=== PATIENT | female | born 1970 | race Caucasian/White ===

== ENCOUNTER 2019-04-14 12:04 | Outpatient (CLI) | payer BC, SELFPAY ==
[2019-04-14 12:29] LABS: Hematocrit 34.1 % (35.0-49.0); Hemoglobin 9.6 g/dL (12.0-15.0); Mean Corpuscular HGB Conc 28.2 g/dL (32.0-36.0); Mean Corpuscular Hemoglobin 18.6 pg (27.0-31.0); Mean Corpuscular Volume 66.2 fL (78.0-102.0); Mean Platelet Volume 8.5 fl (9.2-11.8); Platelet Count Result 358 K/mm3 (150-420); Red Blood Count 5.15 M/mm3 (4.20-5.40); Red Cell Distribution Width 18.6 % (11.6-14.4); White Blood Count 8.1 K/mm3 (4.8-10.8)
[2019-04-14 13:37] LABS: Alanine Aminotransferase 14 U/L (14-59); Albumin Level 3.2 g/dL (3.4-5.0); Alkaline Phosphatase 130 U/L (46-116); Anion Gap 15.1 mmol/L (7-16); Aspartate Amino Transferase 11 U/L (15-37); Bilirubin Direct 0.1 mg/dL (0-0.2); Bilirubin,Total 0.2 mg/dL (0.00-1.00); Blood Urea Nitrogen 13 mg/dL (7-18); Calcium 8.5 mg/dL (8.5-10.1); Carbon Dioxide 23 mmol/L (21-32); Chloride 107 mmol/L (98-108); Cholesterol 188 mg/dL (0-200); Estimated Glomerular Filt Rate 58; Ferritin 4 ng/mL (8-252); Folic Acid 16.5 ng/mL (8.6->20); Glucose 99 mg/dL (70-99); HDL Direct 58 mg/dL (40-60); Iron 21 ug/dL (50-170); LDL Cholesterol Calculated 112 mg/dL (<130); Osmolality Calculated 292 mOsm/kg (285-295); Percent Iron Saturation 4 % (12-57); Phosphorus 3.5 mg/dL (2.6-4.7); Potassium 4.1 mmol/L (3.5-5.1); Sodium 141 mmol/L (136-145); Total Protein 7.3 g/dL (6.4-8.2); Triglycerides 92 mg/dL (0-150); Vitamin B12 319 pg/mL (193-986)
[2019-04-14 13:38] LABS: Thyroid Stimulating Hormone Reflex 3.62 u/IU/mL (0.36-3.74)
== END 2019-04-14 12:05 | disposition home or self-care (01) ==
LOC: CHSLAB 12:09
PROVIDERS: PCP Emergency Medicine; Visit Provider Emergency Medicine
DX: Z00.01 Encounter for general adult medical examination with abnormal findings (principal); K21.9 Gastro-esophageal reflux disease without esophagitis; I10 Essential (primary) hypertension; R51 Headache; R53.83 Other fatigue; R63.5 Abnormal weight gain
CPT/HCPCS: 36415; 80061; 80069; 80076; 82607; 82728; 82746; 83540; 83550; 84443; 85027

== ENCOUNTER → 2019-05-19 12:38 | Outpatient (CLI) | payer BC, SELFPAY ==
--- NOTE | ~2019-05-19 | MM_ITS ---
EXAMINATION: MM screening [facility] BI w luda HISTORY: Screening mammogram TECHNIQUE: Craniocaudal and mediolateral oblique 3-D tomosynthesis images were obtained and synthetic 2-D images were generated. CAD analysis was submitted and interpreted. COMPARISON: 08/07/2017, 09/06/2013 bilateral digital screening mammogram examinations BREAST PARENCHYMAL COMPOSITION: There are scattered areas of fibroglandular density. FINDINGS: Stable benign intramammary lymph node right breast. There is a focal asymmetry slightly medial to the mid sagittal plane on craniocaudal caudal view at m id depth of the right breast. Diagnostic left mammogram is recommended, with ultrasound if required. Otherwise there is no evidence of suspicious mass, calcification, or architectural distortion to sugg est malignancy in either breast. There has been no other suspicious interval change. IMPRESSION: 1. Focal asymmetry of left breast on craniocaudal view 2. Diagnostic left mammogram is recommended, with ultrasound if required. BI-RADS Category 0: Incomplete: Needs additional imaging evaluation. Reviewed, dictated and finalized at location A.
== END ==
PROVIDERS: Visit Provider Emergency Medicine
DX: Z12.31 Encounter for screening mammogram for malignant neoplasm of breast (principal); R92.8 Other abnormal and inconclusive findings on diagnostic imaging of breast
CPT/HCPCS: 77063; 77067

== ENCOUNTER → 2019-09-21 14:37 | Outpatient (CLI) | payer BC, SELFPAY ==
--- NOTE | ~2019-09-21 | MM_ITS ---
EXAMINATION: MM diagnostic mammo unilat LT HISTORY: 05/19/2019 bilateral digital screening mammogram TECHNIQUE: Additional 3-D tomosynthesis images of the left breast were performed and synthetic 2-D im ages were generated. Rolled medial craniocaudal and rolled lateral craniocaudal views. CAD analysis w as submitted and interpreted. COMPARISON: 05/19/2019 bilateral digital screening mammogram 08/07/2017, 09/06/2013ilateral digital screening mammogram examinations BREAST PARENCHYMAL COMPOSITION: There are scattered areas of fibroglandular density. FINDINGS: No suspicious mass or architectural distortion, malignant calcification, skin thickening or retraction or significant new or developing density is detected. IMPRESSION: 1. No mammographic evidence of malignancy 2. Routine mammographic screening is recommended. BI-RADS Category 1: Negative Reviewed, dictated and finalized at location A.
== END ==
PROVIDERS: PCP Emergency Medicine; Visit Provider Emergency Medicine
DX: R92.2 Inconclusive mammogram (principal)
CPT/HCPCS: 77065

== ENCOUNTER → 2019-12-22 14:29 | Outpatient (CLI) | payer BC, SELFPAY ==
--- NOTE | ~2019-12-22 | MR_ITS ---
EXAMINATION: MR knee LT wo con DATE: 12/22/2019 15:02 INDICATION: Medial collateral ligament sprain at the left knee with 2 months of anterior left knee pa in. TECHNIQUE: Magnetic resonance imaging (MRI) of the left knee was performed without intravenous contra st. Sequences included coronal PD-weighted FSE, coronal PD-weighted FS FSE, sagittal T2-weighted FSE , sagittal PD-weighted FS FSE and axial PD weighted fat saturated FSE. COMPARISON: None. FINDINGS: Medial compartment: Medial meniscus is normal. Partial-thickness cartilage loss with deep fissuring and mild underlying s ubarticular edema along the anterior weightbearing medial femoral condyle and along the anterior aspe ct of the medial tibial plateau. Lateral compartment: Lateral meniscus is normal. Articular cartilage is normal. Patellofemoral compartment: Partial-thickness chondral ulceration at the medial facet and apical ridge without degenerative subch ondral changes. Deep chondral ulceration with cortical irregularity and mild reticular edema at the c audal half of the medial trochlea. Ligaments and tendons: Anterior and posterior cruciate ligaments are normal. The medial collateral ligament and fibular marlo ateral ligament complex are normal. The extensor mechanism is normal. The visualized medial and later al hamstring tendons as well as the iliotibial band are normal. Fluid: Likely reactive small left knee joint effusion. No loose osteochondral bodies identified. Osseous/other: Bone alignment is normal. No fracture or pathologic marrow replacing process. Prepatellar edema witho ut discrete bursal fluid collection. IMPRESSION: 1. Mild to moderate osteoarthritis medial compartment and mild patellofemoral osteoarthritis, both wi th regions of moderate and high-grade chondromalacia as detailed above. Reviewed, dictated and finalized at location B. IMPRESSION: 1. Mild to moderate osteoarthritis medial compartment and mild patellofemoral o steoarthritis, both with regions of moderate and high-grade chondromalacia as d etailed above.
== END ==
PROVIDERS: Visit Provider Orthopaedic Surgery
DX: S83.412A Sprain of medial collateral ligament of left knee, initial encounter (principal); M25.562 Pain in left knee; M17.12 Unilateral primary osteoarthritis, left knee; M94.262 Chondromalacia, left knee
CPT/HCPCS: 73721

== ENCOUNTER → 2020-04-06 13:25 | Outpatient (CLI) | payer BC, SELFPAY ==
--- NOTE | ~2020-04-06 | US_ITS ---
EXAMINATION: US pelvic complete w TV DATE: 04/06/2020 13:59 INDICATION: Right pelvic fullness. Heavy periods. Comparison:No prior studies for comparison. TECHNIQUE: Multiple transabdominal and endovaginal sonographic images of the pelvis performed. FINDINGS: The uterus measures 10.1 x 4.1 x 5.8. The endometrial complex measures 1.2 cm. The right ovary measures 2.2 x 1.8 x 2.3 cm and the left ovary measures 2.3 x 2.3 x 1.6 cm. There ar e small follicles in each ovary.Normal doppler signal in both ovaries. There is no free fluid in the pelvis. There are no abnormal masses seen on either side. IMPRESSION: 1. Enlarged uterus with mild endometrial thickening measuring 12 mm. 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
== END ==
PROVIDERS: PCP Emergency Medicine; Visit Provider Nurse Practitioner
DX: R10.2 Pelvic and perineal pain (principal); R93.89 Abnormal findings on diagnostic imaging of other specified body structures
CPT/HCPCS: 76830; 76856

== ENCOUNTER → 2020-04-21 00:39 | Outpatient (CLI) | payer BC, SELFPAY ==
[2020-04-21 17:47] LABS: SARS-CoV-2 RNA PCR Negative
== END ==
PROVIDERS: PCP Emergency Medicine; Visit Provider Obstetrics & Gynecology Gynecology
DX: Z01.812 Encounter for preprocedural laboratory examination (principal); Z20.822 Contact with and (suspected) exposure to COVID-19
CPT/HCPCS: C9803; U0003; U0005

== ENCOUNTER 2020-04-24 00:47 | Day surgery (SDC) | payer BC, SELFPAY ==
[2020-04-17 14:09] VITALS: BMI 37.1
--- NOTE | 2020-04-24 08:14 | WPDHPUPDATE1 ---
History and Physical Update Update Date/Time: 04/24/20 08:14 History and Physical has been reviewed, including an updated exam of the patient. There are NO changes in the patient's condition. Risks, benefits, and alternatives have been discussed and questions answered. Patient agrees to proceed with procedure.
--- NOTE | 2020-04-24 08:15 | PM.HPGS ---
History of Present Illness History of Present Illness Consent: Risks, benefits, and alternatives have been discussed and questions answered. Patient agrees to proceed with procedure. Chief complaint: Menorrhagia Narrative: Brigette Juan is a 49 year old female with heavy cycles. Cycles are lasting for a total of 7 days with 1 day of very heavy bleeding up to 1 pad per hour she was diagnosed with anemia and her primary care provider gave the patient iron infusions. Pelvic ultrasound was normal except for a slightly enlarged uterus at 10cm. It was recommended to proceed with further workup including hysteroscopy with D& C. Risks of infection, bleeding, and uterine perforation were reviewed. The patient states understanding and agrees to proceed. Review of Systems Review of Systems: Narrative: not repeated day of surgery; patient states no changes in status PMFSH Past Medical History Medical History (Updated 04/24/20 @ 08:22 by Leila Cooley MD) Anxiety Borderline personality disorder Depression MCL sprain of left knee Obesity Osteoarthritis of both knees Spontaneous Surgical History Surgical History H/O wisdom tooth extraction (~1988) History of arthroscopy of right knee (~1993) To Clean Out Scar Tissue History of eye surgery (~1975) To Correct Exotropia Rt Eye History of eye surgery (~1979) To Correct Exotropia Lt Eye Family History Family History Father Hypertension Family history of alcoholism Family history of diabetes mellitus in first degree relative Father Family history of diabetes mellitus in first degree relative Other Carcinoma of colon Social History Social History Smoking status: Never smoker Alcohol intake: never Living arrangements: with family Spiritual care concerns: No Meds Home Medications and Allergies Home Medications Medication Instructions Recorded Confirmed Type acetaminophen 325 mg tablet 325 mg PO Q6H PRN 12/15/19 04/17/20 History ibuprofen 200 mg tablet 200 mg PO Q6H PRN 12/15/19 04/17/20 History trazodone 200 mg PO HS 04/17/20 04/17/20 History Allergies Allergy/AdvReac Type Severity Reaction Status Date / Time No Known Allergies Allergy Verified 04/17/20 14:14 Exam Const: General: no acute distress GI: Inspection: normal to inspection GI Palp: Yes Soft to palpation and Yes Tenderness to palpation present (GI) (lower abdomen) : External Female Exam: normal external appearance Speculum Exam - Vagina: normal appearance of the vagina Speculum Exam - Cervix: Other cervical findings present (cervix friable) Bimanual exam- vagina & uterus: No Cervical tenderness present and nontender Bimanual Exam- Adnexa, other: tender (R>L) and other (R sided fullness) Assessment and Plan Assessment and plan (1) Menorrhagia: Code(s): N92.0 - Excessive and frequent menstruation with regular cycle Status: Acute Assessment and Plan: plan to proceed with hysteroscopy and D&C
[2020-04-24 09:35] VITALS: BP 141/106; PULSE 88; RESP 18; TEMP 36.5; O2SAT 98
[2020-04-24] MEDS: ACETAMINOPHEN 500 MG TABLET 1000 MG PO (09:59)
[2020-04-24] MEDS: LACTATED RINGERS 1,000 ML 30 ML IV CONT (10:13)
--- NOTE | 2020-04-24 10:37 | WPDANESEPPF ---
Anes - Initial Pre Proc Eval Procedure: Operation Date: 04/24/20 11:15 Proposed Procedures p Hysteroscopy Dilation and Curettage - Leila Cooley MD Date/Time: 04/24/20 10:37 Surgeon: Leila Cooley MD Pre Op Diagnosis: Menorrhagia Patient Data Age: 49 Gender: F Height: 5 ft 6 in Weight: 98.1 kg Last Vital Signs Temp 36.5 C 04/24/20 09:35 Pulse 88 04/24/20 09:35 Resp 18 04/24/20 09:35 BP 141/106 H 04/24/20 09:35 Pulse Ox 98 04/24/20 09:35 Allergies Allergy/AdvReac Type Severity Reaction Status Date / Time No Known Allergies Allergy Verified 04/24/20 09:32 Home Medications Medication Instructions Recorded Confirmed Type acetaminophen 325 mg tablet 325 mg PO Q6H PRN 12/15/19 04/24/20 History ibuprofen 200 mg tablet 200 mg PO Q6H PRN 12/15/19 04/24/20 History trazodone 200 mg PO HS 04/17/20 04/24/20 History Patient hx anesthesia problems: none Family hx anesthesia problems: none PMFSH Past Medical History Medical History Anxiety Borderline personality disorder Depression MCL sprain of left knee Obesity Osteoarthritis of both knees Spontaneous Surgical History Surgical History H/O wisdom tooth extraction (~1988) History of arthroscopy of right knee (~1993) To Clean Out Scar Tissue History of eye surgery (~1975) To Correct Exotropia Rt Eye History of eye surgery (~1979) To Correct Exotropia Lt Eye Family History Family History Father Hypertension Family history of alcoholism Family history of diabetes mellitus in first degree relative Father Family history of diabetes mellitus in first degree relative Other Carcinoma of colon Social History Social History Smoking status: Never smoker Alcohol intake: never Living arrangements: with family Spiritual care concerns: No Anes - Eval Final PreProcedure Day of Procedure 04/24/20 10:37 Patient weight: obese Heart: regular rate and rhythm Lungs: clear to auscultation Airway: Mallampati scale class II Neurological: alert and oriented Last oral intake: >/= 8 hours ASA classification: III Emergent: no Anesthetic plan: proceed Anesthesia type and monitoring: general GIVS and standard monitoring Informed Consent: The patient's anesthetic plan and its attendant risks and benefits were discussed with the patient/family/POA. Questions were solicited and answers provided to the satisfaction of the patient/family/POA.
--- NOTE | 2020-04-24 11:29 | PM.PROC ---
Procedure Note - Detailed Date of procedure: 04/24/20 Pre-op diagnosis: Menorrhagia Post-op diagnosis: same Procedure performed: D&C hysteroscopy Description of procedure: The patient is taken to the operating room placed in the dorsal lithotomy position under anesthesia. She was prepped and draped in usual sterile fashion. The bivalve speculum was placed in the vagina and the cervix is grasped on the anterior lip with a tenaculum. The cervix is noted to have a very stenotic external and internal os. The os Finders are used. The cervix is then able to be dilated. The uterus sounds to 10cm. The diagnostic hysteroscope was placed with no abnormalities noted. The hysteroscope was removed and the medium sharp curette is used to curette the endometrium until a good uterine cry was noted in all areas. All instruments are removed. Sponge, instrument, and needle counts are correct per the OR staff. Anesthesia: MAC and local Surgeon: Leila Cooley MD Estimated blood loss (mL): 5 Drains: No Packing: No Pathology: yes (endometrial curettings) Complications: No immediate complications Condition: stable Disposition: PACU Findings: cervix stenotic; uterus 10 cm; grossly normal appearing
[2020-04-24 11:40] VITALS: BP 143/94; PULSE 97; RESP 12; O2SAT 95
[2020-04-24] MEDS: fentaNYL CITRATE INJ (*CRX) 100 MCG/2 ML VIAL 25 MCG IV PUSH (11:40)
[2020-04-24 12:15] VITALS: BP 165/99; PULSE 74; RESP 14
== END 2020-04-24 12:36 | disposition home or self-care (01) ==
PROVIDERS: PCP Emergency Medicine; Visit Provider Obstetrics & Gynecology Gynecology
PROC: 0U5B8ZZ Destruction of Endometrium, Via Natural or Artificial Opening Endoscopic (ICD-10-PCS; CPT 58563; principal; 2020-04-24 11:15)
DX: N92.0 Excessive and frequent menstruation with regular cycle (principal); D64.9 Anemia, unspecified; F41.8 Other specified anxiety disorders; F60.3 Borderline personality disorder; E66.9 Obesity, unspecified; Z68.34 Body mass index [BMI] 34.0-34.9, adult
CPT/HCPCS: 58558; 88305; 88342; A9270; C9803; J2250; J2704; J3010; J7120; U0003; U0005

== ENCOUNTER 2020-07-11 08:37 | Outpatient (CLI) | payer BC, SELFPAY ==
--- NOTE | 2020-07-11 | ECHO_ITS ---
Patient Info Name: Brigette Juan Age: 49 years : 1970 Gender: Female Ht: 66 in Wt: 230 lbs BSA: 2.25 m2 HR: 84 bpm BP: 167 / 113 mmHg Heart Rhythm: Sinus Rhythm Technical Quality: Good Exam Date: 07/11/2020 8:52 AM Exam Location: [facility] Patient Status: Outpatient Admit Date: 07/11/2020 Staff Ordering Physician: Jim Villanueva MD Pitching Coach: Aster Rincon RDCS Attending Provider: Jim Villanueva MD Referring Physician: Rich BARBOSA; Exam Type: CA echo doppler color flow Study Info Indications R00.2 - Palpitations Complete two-dimensional, color flow and Doppler transthoracic echocardiogram is performed. Summary 1. Complete two-dimensional, color flow and Doppler transthoracic echocardiogram is performed. 2. Left ventricular systolic function is normal, estimated at 65-70%. 3. There is no increased left ventricular wall thickness. 4. The left ventricular diastolic function is normal. 5. There is mild mitral valve regurgitation. 6. There is trace aortic valve regurgitation. Left Ventricle Left ventricular chamber dimension is normal. Left ventricular systolic function is normal, estimated at 65-70%. There is no increased left ventricular wall thickness. The left ventricular diastolic function is normal. Global longitudinal strain is mildly elevated at -17 %. Right Ventricle Right ventricular chamber dimension is normal. Right ventricular systolic function is normal. Left Atria Left atrial chamber dimension is normal. Right Atria Right atrial chamber dimension is normal. Aortic Valve The aortic valve is not well visualized. There is no aortic valve stenosis. There is trace aortic valve regurgitation. Pulmonic Valve The pulmonic valve is not well visualized. Mitral Valve The mitral valve has normal leaflets. There is mild mitral valve regurgitation. Tricuspid Valve The tricuspid valve leaflets are normal. There is trace tricuspid valve regurgitation. No pulmonary hypertension, estimated pulmonary arterial systolic pressure is 25 mmHg. Pericardium/Pleural The pericardium appears normal. There is no pericardial effusion. Inferior Vena Cava Normal inferior vena cava with >50% collapse upon inspiration consistent with normal right atrial pressure, 5 mmHg. Aorta The aortic root size at the sinus of Valsalva is normal. Left Ventricular Outflow Tract Name Value Normal LVOT 2D LVOT Diameter 1.9 cm LVOT Doppler LVOT Peak Gradient 5 mmHg LVOT Mean Gradient 3 mmHg LVOT VTI 22 cm LVOT VTI/AV VTI Ratio 1.1 LVOT Stroke Volume 60 ml LVOT CO 5.1 l/min LVOT CI 2.3 l/min/m2 Pulmonic Valve Name Value Normal RVOT Doppler
== END 2020-07-11 08:38 | disposition home or self-care (01) ==
LOC: ANHCARD 08:41
PROVIDERS: PCP Emergency Medicine; Visit Provider Emergency Medicine
DX: R00.2 Palpitations (principal); R00.0 Tachycardia, unspecified; I34.0 Nonrheumatic mitral (valve) insufficiency
CPT/HCPCS: 93306

== ENCOUNTER → 2021-12-21 10:37 | Outpatient (CLI) | payer BC, SELFPAY ==
--- NOTE | ~2021-12-21 | MM_ITS ---
EXAMINATION: MM screening [facility] BI w luda HISTORY: Screening mammogram TECHNIQUE: Craniocaudal and mediolateral oblique 3-D tomosynthesis images were obtained and synthetic 2-D images were generated. CAD analysis was submitted and interpreted. COMPARISON: 09/21/2019, 05/19/2019, 08/07/2017 BREAST PARENCHYMAL COMPOSITION: There are scattered areas of fibroglandular density. FINDINGS: No suspicious mass, calcification, or architectural distortion are identified in either suzie ast to suggest malignancy. There has been no suspicious interval change. IMPRESSION: 1. No mammographic evidence of malignancy. 2. Recommend routine screening mammography in one year. BI-RADS Category 1: Negative Reviewed, dictated and finalized at location A.
== END ==
PROVIDERS: PCP Emergency Medicine; Visit Provider Emergency Medicine
DX: Z12.31 Encounter for screening mammogram for malignant neoplasm of breast (principal)
CPT/HCPCS: 77063; 77067

== ENCOUNTER 2022-09-27 15:10 | Outpatient (RCR) | payer BC, SELFPAY ==
--- NOTE | 2022-09-27 16:19 | OPREHPOC ---
Outpatient Therapy Plan of Care This is a Multidisciplinary Plan of Care that may contain components documented by all disciplines (PT, OT, and ST.) PT Problem 1 PT Problem #1 Knowledge Deficit PT Goal 1 Goal Patient to demonstrate independence with HEP Target Visit 6 PT Problem 2 PT Problem #2 Pain PT Goal 1 Goal Patient to report highest pain at 2/10 Target Visit 12 PT Problem 3 PT Problem #3 Impaired Strength PT Goal 1 Goal Patient to demonstrate 5/5 strength of B LE to return to heavy house hold chores at PLOF Target Visit 12 PT Problem 4 PT Problem #4 Impaired Range of Motion PT Goal 1 Goal Patient to demonstrate B knee ROM to 0-125 to return to stair navigation at PLOF Target Visit 12 PT Problem 5 PT Problem #5 Impaired Functional Mobil PT Goal 1 Goal 1. Patient to improve LEFS by 20% 2. Patient to report ability to stand up from chair with no increase in pain 3. Patient to reports ability to care for her dogs with no increase in pain. Target Visit 12
--- NOTE | 2022-09-27 16:19 | PTOPEVAL1 ---
Assessment and note entered by Lakeisha Sampson DPT Evaluation Information Diagnosis B knee pain Onset 10/16/22 Subjective Information Patient reports on 08/29/22 patient was in the yard and tripped and was trying to catch her balance and resulted in falling with resulting pain in both knees. She reports L knee is worse than R. She reports L knee pain is at medial and lateral joint line. She reports R sided pain is down the ITB. Patient reports difficulty with walking, getting up from chair, and stair navigation. Patient reports no difficulty previously. Patient reports she does not work but has 8 dogs she cares for. RTMD for MRI 10/21/22 Reported Pain Level Pain Score 4,6: Self Report Assessment PT Clinical Summary Patient is a 52 year old female who presents to PT with B knee pain. Patient demonstrates decreased B LE strength, decreased L knee flexion and tenderness at the joint line with special testing indicating possible meniscus tear at the L knee. Patient is limited in ambulation, getting up from a chair and completing house hold tasks. Patient would benefit from skilled PT to address impairments and return to PLOF. Plan of Care Interventions Electrical Stimulation,Gait Training,Hot Pack/Cold Pack,Manual Therapy,Neuro Re-education,Patient/ Caregiver Educati,Therapeutic Activities, Therapeutic Exercise PT Services Indicated Yes Treatment Frequency and 2x weekly for 12 viits Duration These treatments will address the objective and functional deficits as defined above. The patient will be advanced safely and appropriately in order for the patient to progress towards his/her prior level of function. Additional exercises will be introduced and as well as a comprehensive home exercise program upon discharge, if needed, ?to ensure carryover of functional gains achieved in the clinic. This treatment plan has been reviewed and agreement upon by the patient.
--- NOTE | 2022-09-27 16:50 | PTOPEVAL1 ---
Assessment and note entered by Lakeisha Sampson DPT Evaluation Information Diagnosis B knee pain Onset 08/29/22 Subjective Information Patient reports on 08/29/22 patient was in the yard and tripped and was trying to catch her balance and resulted in falling with resulting pain in both knees. She reports L knee is worse than R. She reports L knee pain is at medial and lateral joint line. She reports R sided pain is down the ITB. Patient reports difficulty with walking, getting up from chair, and stair navigation. Patient reports no difficulty previously. Patient reports she does not work but has 8 dogs she cares for. RTMD for MRI 10/21/22 Reported Pain Level Pain Score 4,6: Self Report Assessment PT Clinical Summary Patient is a 52 year old female who presents to PT with B knee pain. Patient demonstrates decreased B LE strength, decreased L knee flexion and tenderness at the joint line with special testing indicating possible meniscus tear at the L knee. Patient is limited in ambulation, getting up from a chair and completing house hold tasks. Patient would benefit from skilled PT to address impairments and return to PLOF. Plan of Care Interventions Electrical Stimulation,Gait Training,Hot Pack/Cold Pack,Manual Therapy,Neuro Re-education,Patient/ Caregiver Educati,Therapeutic Activities, Therapeutic Exercise PT Services Indicated Yes Treatment Frequency and 2x weekly for 12 visits Duration These treatments will address the objective and functional deficits as defined above. The patient will be advanced safely and appropriately in order for the patient to progress towards his/her prior level of function. Additional exercises will be introduced and as well as a comprehensive home exercise program upon discharge, if needed, ?to ensure carryover of functional gains achieved in the clinic. This treatment plan has been reviewed and agreement upon by the patient.
== END 2022-10-17 13:22 | disposition home or self-care (01) ==
LOC: CHSPT 15:10
PROVIDERS: Visit Provider Physician Assistant
DX: M25.561 Pain in right knee (principal); M25.562 Pain in left knee; S83.242D Other tear of medial meniscus, current injury, left knee, subsequent encounter; S86.911D Strain of unspecified muscle(s) and tendon(s) at lower leg level, right leg, subsequent encounter
CPT/HCPCS: 97014; 97110; 97140; 97161; G0283

== ENCOUNTER 2023-08-22 09:32 | Outpatient (CLI) | payer BC, SELFPAY ==
[2023-08-22 10:12] LABS: Basophils Absolute Auto 0.02 K/mm3 (0.00-0.10); Basophils Percent Auto 0.3 % (0.0-1.0); Eosinophils Absolute Auto 0.14 K/mm3 (0.02-0.50); Hematocrit 40.8 % (35.0-49.0); Hemoglobin 13.9 g/dL (12.0-15.0); Immature Granulocyte Absolute 0.02 K/mm3 (0.00-0.00); Immature Granulocyte Percent A 0.3 % (0.0-0.0); Lymphocytes Absolute Auto 2.05 K/mm3 (1.10-4.50); Lymphocytes Percent Auto 28.6 % (18.0-42.0); Mean Corpuscular HGB Conc 34.1 g/dL (32-36); Mean Corpuscular Hemoglobin 29.9 pg (27.0-31.0); Mean Corpuscular Volume 87.7 fL (78.0-102.0); Mean Platelet Volume 9.7 fl (9.2-11.8); Monocytes Absolute Auto 0.64 K/mm3 (0.10-0.90); Monocytes Percent Auto 8.9 % (2.0-11.0); Neutrophils Absolute Auto 4.29 K/mm3 (1.70-7.20); Neutrophils Percent Auto 59.9 % (50.0-70.0); Platelet Count Result 220 K/mm3 (150-420); Red Blood Count 4.65 M/mm3 (4.20-5.40); Red Cell Distribution Width 13.5 % (11.6-14.4); White Blood Count 7.2 K/mm3 (4.8-10.8)
[2023-08-22 10:17] LABS: Appearance Urine Clear (Clear); Bilirubin Urine Negative (Negative); Blood Urine Negative (Negative); Color Urine Yellow (Yellow); Glucose Urine UA Negative (Negative); Ketones Urine Negative (Negative); Leukocyte Esterase Ur Trace LEU/UL (Negative); Nitrate Urine Negative (Negative); Protein Urine Negative (Negative); Urobilinogen Urine 0.2 mg/dL (0.2-1.0); pH Urine 7.5 (5.0-8.0)
[2023-08-22 10:28] LABS: Add Urine Microscopic? YES; Bacteria Urine Trace /hpf; RBC Urine None seen /hpf (0-2); Squamous Epithelial Cell Urine Moderate /hpf (Few); WBC Urine 0-5 /hpf (0-3)
[2023-08-22 11:10] LABS: Alanine Aminotransferase 25 U/L (14-59); Albumin Level 3.4 g/dL (3.4-5.0); Alkaline Phosphatase 147 U/L (46-116); Anion Gap 7 mmol/L (4-12); Aspartate Amino Transferase 12 U/L (15-37); Bilirubin Direct 0.1 mg/dL (0-0.2); Bilirubin,Total 0.3 mg/dL (0.00-1.00); Blood Urea Nitrogen 10 mg/dL (7-18); Carbon Dioxide 30 mmol/L (21-32); Chloride 102 mmol/L (98-108); Cholesterol 218 mg/dL (0-200); Estimated Glomerular Filt Rate > 60; Folic Acid 18.7 ng/mL (8.6->20); Glucose 101 mg/dL (70-99); HDL Direct 48 mg/dL (40-60); LDL Cholesterol Calculated 143 mg/dL (<130); Osmolality Calculated 287 mOsm/kg (285-295); Phosphorus 3.2 mg/dL (2.6-4.7); Potassium 4.4 mmol/L (3.5-5.1); Sodium 139 mmol/L (136-145); Total Protein 7.2 g/dL (6.4-8.2); Triglycerides 137 mg/dL (0-150); Vitamin B12 679 pg/mL (193-986)
[2023-08-22 11:32] LABS: Free T4 Free Thyroxine Reflex 0.69 ng/dL (0.76-1.46)
== END 2023-08-22 09:33 | disposition home or self-care (01) ==
LOC: CHSLAB 09:34
PROVIDERS: PCP Emergency Medicine; Visit Provider Emergency Medicine
DX: E03.9 Hypothyroidism, unspecified (principal); F41.1 Generalized anxiety disorder; F51.01 Primary insomnia; H93.13 Tinnitus, bilateral; I10 Essential (primary) hypertension; R63.5 Abnormal weight gain
CPT/HCPCS: 36415; 80061; 80069; 80076; 81001; 82607; 82746; 84439; 84443; 85025

== ENCOUNTER 2023-08-25 07:05 | Day surgery (SDC) | payer BC, SELFPAY ==
[2023-08-25] VITALS (17 sets, daily range): BP systolic 122–178; BP diastolic 82–127; PULSE 65–114; RESP 11–31; TEMP 36.1–36.8; O2SAT 96–100
--- NOTE | ~2023-08-25 | XR_ITS ---
EXAMINATION: XR surgery orthopedic DATE: 08/25/2023 11:16 INDICATION: ORIF left second digit partial amputation. TECHNIQUE: 2 fluoroscopic images of the second digit were obtained during procedure performed by Dr. Calloway. Radiologist was not present for the imaging or procedure. The amount of fluoroscopy time used during this procedure was 0.1 minutes. COMPARISON: Left second digit radiographs dated 08/25/2023 FINDINGS: Interval replacement near-anatomic alignment of the amputated portion of the distal phalanx of the le ft second digit which includes the tuft and surrounding soft tissues. The bone is fixed with an axill wilfred directed to the cutaneous pin which extends across the tuft, the more proximal portion of the dis viraj phalanx and into the head of the second middle phalanx. No new fractures identified. IMPRESSION: 1. Near-anatomic alignment post replacement and percutaneous pin fixation of a partial amputation of the distal aspect of the left second distal phalanx. Reviewed, dictated and finalized at location B.
--- NOTE | ~2023-08-25 | XR_ITS ---
XR finger 2nd LT min 2V Ordering provider: Richard Parker MD History: . lac, DOG BITE TIP FINGER OFF THIS MORNING . Comparison: None. FINDINGS: BONES: Amputation of the distal end of the distal phalanx of the second finger. JOINT SPACES: Normal. SOFT TISSUES: Loss of soft tissues in the distal end of the distal phalanx with soft tissue swelling in the area. IMPRESSION: Amputation of the distal end of the distal phalanx of the second finger Reviewed, dictated and finalized at location A.
[2023-08-25] MEDS: AMOXICILLIN/CLAVULANATE K 875-125 MG TAB 1 TABLET PO (07:43)
[2023-08-25] MEDS: HYDROcodone/acetaminophen (*CRX) 5-325 MG TABLET 2 TAB PO (07:43)
--- NOTE | 2023-08-25 07:59 | ED.GENADULT ---
HPI - General Adult General Chief complaint: Extremity Injury, Upper Stated complaint: L 2ND DIGIT PARTIAL AMP Time Seen by Provider: 08/25/23 07:18 History of Present Illness HPI narrative: This is a 53-year-old female presenting ED with a chief complaint finger avulsion. Patient was bit on her left hand by her [place] mastiff. the tip of her finger was removed. She brought the tip with her to the ED. no other injuries. Dog is up-to-date on shots. Related Data Home Medications Medication Instructions Recorded Confirmed acetaminophen 325 mg tablet 325 mg PO Q6H PRN Pain 12/15/19 04/24/20 (Tylenol) ibuprofen 200 mg tablet (Advil) 200 mg PO Q6H PRN Headache 12/15/19 04/24/20 trazodone 100 mg tablet 200 mg PO HS 04/17/20 04/24/20 Allergies Allergy/AdvReac Type Severity Reaction Status Date / Time No Known Allergies Allergy Verified 04/24/20 09:32 [facility] Past Medical History Medical History Anxiety Borderline personality disorder Depression MCL sprain of left knee Obesity Osteoarthritis of both knees Spontaneous Surgical History Surgical History H/O wisdom tooth extraction (~1988) History of arthroscopy of right knee (~1993) To Clean Out Scar Tissue History of eye surgery (~1975) To Correct Exotropia Rt Eye History of eye surgery (~1979) To Correct Exotropia Lt Eye Family History Family History Father Hypertension Family history of alcoholism Family history of diabetes mellitus in first degree relative Father Family history of diabetes mellitus in first degree relative Other Carcinoma of colon Social History Social History Smoking status: Never smoker Alcohol intake: never Living arrangements: with family Spiritual care concerns: No Exam Narrative: APPEARANCE: No apparent distress. Head: atraumatic. EYES: EOMI, NOSE: Atraumatic NECK: Trachea midline RESPIRATORY: No increased rate of breathing CARDIOVASCULAR: RRR, ABDOMINAL: Non-distended MUSCULOSKELETAl: L hand, 2nd digit Zone II distal avulsion injury w/ complete removal of nail. Minor avulsion of 3rd digit w/ nailbed laceration. NEURO: Alert. Moving 4/4 extremities SKIN:: Warm, dry. Normal color PSYCHIATRIC: Normal affect Course Vital Signs Vital signs: Vital Signs Temperature 98.2 F 08/25/23 07:12 Pulse Rate 114 H 08/25/23 07:12 Respiratory Rate 16 08/25/23 07:12 Blood Pressure 178/127 H 08/25/23 07:12 Pulse Oximetry 100 08/25/23 07:12 Oxygen Delivery Room Air 08/25/23 07:12 Temperature 98.2 F 08/25/23 07:12 Pulse Rate 90 08/25/23 08:02 Respiratory Rate 16 08/25/23 08:02 Blood Pressure 158/102 H 08/25/23 08:02 Pulse Oximetry 100 08/25/23 08:02 Oxygen Delivery Room Air 08/25/23 07:12 Medical Decision Making MDM Narrative Medical decision making narrative: -Course:53-year-old female presenting with his own 2 avulsion injury to her finger tips. Patient given Tdap, Augmentin Mineral. A digital block performed for pain control. Dr. Calloway at the was consult and will take the patient to the OR for reimplantation. -DDX includes but is not limited to: Finger avulsion, soft tissue injury, bony injury, -Independent interpretation of studies: X-ray showed partial amputation of the distal phalanx -Discussion of Management/Consultants: Dr. Calloway-plastics -Procedures: digital block performed using bupivacaine 0.25% 5 cc -Interventions: Tdap, Augmentin, Mineral 5 mg x 2 -Shared decision making / Disposition: OR -RX Augmentin Vital Signs Vital Signs: Vital Signs Temperature 98.2 F 08/25/23 07:12 Pulse Rate 114 H 08/25/23 07:12 Respiratory Rate 16 08/25/23 07:12 Blood Pressure 178/127 H 08/25/23 07:12 Pulse Oxime
--- NOTE | 2023-08-25 08:03 | PC.NURSE ---
No vaccine was given, accidental double pull. MAR will not allow me to document as not given.
--- NOTE | 2023-08-25 09:40 | WPDCN ---
Assessment and Plan Assessment and plan (1) Amputation, finger, traumatic: Qualifiers: Encounter type: initial encounter Qualified Code(s): S68.119A - Complete traumatic metacarpophalangeal amputation of unspecified finger, initial encounter Code(s): S68.119A - Complete traumatic metacarpophalangeal amputation of unspecified finger, initial encounter Status: Acute Assessment and Plan: 53yo female with left index finger tip amputation from dog bite reviwed impression and Dx and option of attempted replantation in form of composite tissue graft vs allowing to heal by secondary intention discused procedure of pinning fracture and applying graft, post-op expectations and risks. Reviewed procedure, post-op expectations and risks including but not limited to bleeding, infection, injury to tendon/nerve/vessel, decreased hand function, stiffness, RSD, no change or worsening of symptoms, partial/total graft loss, decreased sensation, malunion, nonunion Plan: 1) patient would like to proceeed with attempted salavage with composite grafting HPI Data of Consult Date/Time: 08/25/23 09:40 Requesting Physician: Ruel Calloway MD Primary Care Provider: Jim Villanueva MD Consult Narrative Narrative: Brigette Juan is a 53 year old female who presented to [facility] this AM shortyly after her dog bit off the tip of her left index finger. THe finger was placed in moist gauze and on ice. Plastics consulted for eval and mgmt given severity of injury. xray : Amputation of the distal end of the distal phalanx of the second finger Review of Systems Review of Systems: All systems reviewed & are unremarkable except as noted in HPI and below PMFSH Past Medical History Medical History Anxiety Borderline personality disorder Depression MCL sprain of left knee Obesity Osteoarthritis of both knees Spontaneous Surgical History Surgical History H/O wisdom tooth extraction (~1988) History of arthroscopy of right knee (~1993) To Clean Out Scar Tissue History of eye surgery (~1975) To Correct Exotropia Rt Eye History of eye surgery (~1979) To Correct Exotropia Lt Eye Family History Family History Father Hypertension Family history of alcoholism Family history of diabetes mellitus in first degree relative Father Family history of diabetes mellitus in first degree relative Other Carcinoma of colon Social History Social History Smoking status: Never smoker Alcohol intake: never Living arrangements: with family Spiritual care concerns: No Meds Home Medications and Allergies Home Medications Medication Instructions Recorded Confirmed Type acetaminophen 325 mg tablet 325 mg PO Q6H PRN Pain 12/15/19 04/24/20 History (Tylenol) ibuprofen 200 mg tablet (Advil) 200 mg PO Q6H PRN Headache 12/15/19 04/24/20 History trazodone 100 mg tablet 200 mg PO HS 04/17/20 04/24/20 History amoxicillin 875 mg-potassium 1 tablet PO Q12H #20 tabs 08/25/23 Rx clavulanate 125 mg tablet Allergies Allergy/AdvReac Type Severity Reaction Status Date / Time No Known Allergies Allergy Verified 04/24/20 09:32 Vital Signs Vital Signs - 24 hr 08/25/23 07:12 08/25/23 08:02 08/25/23 08:03 Temperature 36.8 C Pulse Rate 114 H 90 85 Respiratory Rate 16 16 19 Blood Pressure 178/127 H 158/102 H Pulse Oximetry 100 100 Oxygen Delivery Room Air 08/25/23 08:15 08/25/23 08:17 08/25/23 08:30 Temperature Pulse Rate 86 88 100 Respiratory Rate 15 15 26 H Blood Pressure 153/99 H Pulse Oximetry Oxygen Delivery 08/25/23 08:32 08/25/23 08:45 08/25/23 08:47 Temperature Pulse Rate 86 81 86 Respiratory Rate 11 L 16 15 Blood Pressure 1
--- NOTE | 2023-08-25 09:59 | WPDHPUPDATE1 ---
History and Physical Update Update Date/Time: 08/25/23 09:59 Patient seen and examined in pre-operative holding area. No interval change in medical history or symptoms. Patient recalls previous discussion of benefits and alternatives to procedure. Continues to desire to proceed with left index finger replant with composite tissue graft and pinning . Reviewed procedure, post-op expectations and risks including but not limited to bleeding, infection, injury to tendon/nerve/vessel, decreased hand function, stiffness, RSD, no change or worsening of symptoms, malunion, nonunion, partial/total graft loss. I discussed the possible use of assistants and their participation in the case. Patient stated understanding and signed the consent form wishing to proceed.
--- NOTE | 2023-08-25 10:08 | P.PNAN_ITS ---
Anes - Initial Pre Proc Eval Procedure: Operation Date: 08/25/23 10:00 Proposed Procedures p Left Middle Finger Pinning with Skin Closure - Ruel Calloway MD Date/Time: 08/25/23 10:08 Surgeon: Ruel Calloway MD Pre Op Diagnosis: L 2ND DIGIT PARTIAL AMP Patient Data Age: 53 Gender: F Height: 1.68 m Weight: 113 kg Last Vital Signs Temp 98.2 F 08/25/23 07:12 Pulse 80 08/25/23 09:17 Resp 15 08/25/23 09:17 BP 154/82 H 08/25/23 09:17 Pulse Ox 96 08/25/23 09:17 O2 Del Method Room Air 08/25/23 07:12 Allergies Allergy/AdvReac Type Severity Reaction Status Date / Time No Known Allergies Allergy Verified 04/24/20 09:32 Home Medications Medication Instructions Recorded Confirmed Type acetaminophen 325 mg tablet 325 mg PO Q6H PRN Pain 12/15/19 04/24/20 History (Tylenol) ibuprofen 200 mg tablet (Advil) 200 mg PO Q6H PRN Headache 12/15/19 04/24/20 History trazodone 100 mg tablet 200 mg PO HS 04/17/20 04/24/20 History amoxicillin 875 mg-potassium 1 tablet PO Q12H #20 tabs 08/25/23 Rx clavulanate 125 mg tablet Patient hx anesthesia problems: none Family hx anesthesia problems: none Results Review: All pre-operative results and documents have been reviewed as part of the pre- operative evaluation. [facility] Past Medical History Medical History Anxiety Borderline personality disorder Depression MCL sprain of left knee Obesity Osteoarthritis of both knees Spontaneous Surgical History Surgical History H/O wisdom tooth extraction (~1988) History of arthroscopy of right knee (~1993) To Clean Out Scar Tissue History of eye surgery (~1975) To Correct Exotropia Rt Eye History of eye surgery (~1979) To Correct Exotropia Lt Eye Family History Family History Father Hypertension Family history of alcoholism Family history of diabetes mellitus in first degree relative Father Family history of diabetes mellitus in first degree relative Other Carcinoma of colon Social History Social History Smoking status: Never smoker Alcohol intake: never Living arrangements: with family Spiritual care concerns: No Anes - Eval Final PreProcedure Day of Procedure 08/25/23 10:08 Patient weight: morbidly obese Heart: regular rate and rhythm Lungs: clear to auscultation Airway: Mallampati scale class III Neurological: alert and oriented Last oral intake: >/= 8 hours ASA classification: III Emergent: no Anesthetic plan: proceed Anesthesia type and monitoring: general LMA and standard monitoring Results Review: All pre-operative results and documents have been reviewed as part of the pre- operative evaluation. Informed Consent: The patient's anesthetic plan and its attendant risks and benefits were discussed with the patient/family/POA. Questions were solicited and answers provided to the satisfaction of the patient/family/POA.
[2023-08-25] MEDS: LACTATED RINGERS 1,000 ML 30 ML IV CONT (10:14)
[2023-08-25] MEDS: ceFAZolin 2 GM/D5W 50 ML 2 GM/50 ML BAG IVPB (10:17)
[2023-08-25] MEDS: LIDO 1%/EPINEPHRINE 1:100,000 50 ML VIAL 10 ML INFILTRATE (10:35)
--- NOTE | 2023-08-25 11:00 | P.OP_ITS ---
Procedure Note - Detailed Date of Procedure 08/25/23 Pre-op Diagnosis left index finger amputation Post-op Diagnosis Same Procedure Performed left index finger amputation replant with composite graft and distal phalanx pinning Surgeon Ruel Calloway MD Anesthesia MAC Description of Procedure INFORMED CONSENT: The patient was seen and examined and marked in the pre-op area.? The patient signed the consent form. PROCEDURE IN DETAIL:The patient taken back to OR on the stretcher in supine position. Time out performed with anesthesia, surgeon and staff agreeing on patient's name site and surgery to be performed SCDs were placed on the lower extremities and inflated. A tourniquet was placed on {left} upper extremity and antibiotics given IV After anesthesia administered sedation I injected {3}cc 1%lido and 0.5% marcaine plain for digital block in the palm The?{left upper extremity}?was prepped and draped in sterile fashion the??{left upper extremity} was? exsanguinated with Esmarch bandage and tourniquet inflated to 250mmHg The left index finger was soaked in saline, peroxide, iodine solution for 5 minutes while I proceeded with prepping the amputated part. The amputated part was soaked in betadine/saline solution for 2 minutes then rinsed with normal saline. The amputated part to be used as a graft consisted for skin, dermis, fat, fascia and bone. I proceedd with using littler scissors to freshen irregular edges and partially defat the proximal aspect of the graft. The index finger was rinsed in normal saline and then I proceeded with securing the graft to the left indez finger with a 0.035 k-wire in retrograde fashion and verified reduction and placement on multiple views of fluoroscopy. I pinned across the DIPjoint as well ti improve post-op stability. Next I proceeded with 4-0 chromic to suture the graft in place reducing the nail under the proximal nail fold as well. the k-wire was shortened. A dressing of xeroform, 4x4, patric, and a volar splint was applied for patient safety, security, and comfort and secured with an lauren bandage after the tourniquet was let down noting the hand was warm and well perfused. The patient had a more superficial wound laceration around the hyponuychium that was cleansed and dressed with xeroform and gauze as well. The patient was then awaken from anesthesia and transferred to the recovery room in stable condition.? Complications - none EBL- 2cc Disposition - home in stable condition [facility] Billing Surgery - Charge Forward: Surgery Billing ([id number])
== END 2023-08-25 12:10 | disposition home or self-care (01) ==
LOC: ANHED 08:43 → ANHSURGERY 09:24
PROVIDERS: Emergency Provider Emergency Medicine; PCP Emergency Medicine; Visit Provider Plastic Surgery
PROC: (CPT 26765; principal; 2023-08-25 10:00)
DX: S68.119A Complete traumatic metacarpophalangeal amputation of unspecified finger, initial encounter (principal); W54.0XXA Bitten by dog, initial encounter; F41.9 Anxiety disorder, unspecified; F60.3 Borderline personality disorder; E66.01 Morbid (severe) obesity due to excess calories; Z68.41 Body mass index [BMI] 40.0-44.9, adult; Z23 Encounter for immunization
CPT/HCPCS: 26765; 15770; 73140; 90715; 99199; 99285; A9270; C1713; J0690; J2250; J2405; J2704; J3010; J7120

== ENCOUNTER 2023-09-09 10:52 | Outpatient (CLI) | payer BC, SELFPAY ==
--- NOTE | ~2023-09-09 | XR_ITS ---
Left Hand Technique: PA, oblique, and lateral views were obtained. Clinical History: Dog bite COMPARISON: 08/25/2023 Findings: Patient is status post orthopedic pinning of fracture of the distal portion of the second d istal phalanx. There is stranding soft tissue swelling. Remaining osseous structures appear intact.. Impression: Status post orthopedic pinning of fracture of the second distal phalanx. Surrounding soft tissue swel ling. Reviewed, dictated and finalized at location M. Impression: Status post orthopedic pinning of fracture of the second distal phalanx. Surrou nding soft tissue swelling.
== END 2023-09-09 10:53 | disposition home or self-care (01) ==
LOC: ANHIMG 10:57
PROVIDERS: PCP Emergency Medicine; Visit Provider Physician Assistant Surgical
DX: S61.201A Unspecified open wound of left index finger without damage to nail, initial encounter (principal); W54.0XXA Bitten by dog, initial encounter; M79.89 Other specified soft tissue disorders; Z98.890 Other specified postprocedural states
CPT/HCPCS: 73120

== ENCOUNTER 2023-09-23 13:34 | Outpatient (CLI) | payer BC, SELFPAY ==
--- NOTE | ~2023-09-23 | XR_ITS ---
XR hand LT 2V Ordering provider: Lyudmila Reyes PA-C History: . s/p index autograft with pinning x 4 weeks . Comparison: September 09, 2023 FINDINGS: BONES: Fixation of a fracture in the distal phalanx tip of the second finger. No change in alignment is seen.. JOINT SPACES: Well maintained. SOFT TISSUES: Loss of tissue is seen opposite the distal phalanx of the second finger. IMPRESSION: Fixation of a fracture in the distal phalanx tip of the second finger. No change in alignment is seen .. Reviewed, dictated and finalized at location A. IMPRESSION: Fixation of a fracture in the distal phalanx tip of the second finger. No cui e in alignment is seen..
== END 2023-09-23 13:35 | disposition home or self-care (01) ==
PROVIDERS: PCP Emergency Medicine; Visit Provider Physician Assistant Surgical
DX: S68.119D Complete traumatic metacarpophalangeal amputation of unspecified finger, subsequent encounter (principal); X58.XXXD Exposure to other specified factors, subsequent encounter
CPT/HCPCS: 73120

== ENCOUNTER 2023-10-06 11:22 | Outpatient (CLI) | payer BC, SELFPAY ==
--- NOTE | ~2023-10-06 | XR_ITS ---
XR finger 2nd LT min 2V Ordering provider: Ruel Calloway MD History: . S68.119A - Complete traumatic metacarpophalangeal amputat... . Comparison: September 23, 2023 FINDINGS/impression: BONES: Fracture in the distal phalanx with K wire seen in the distal and middle phalanges of the seco nd finger. gap is seen between the fracture fragments. JOINT SPACES: Normal. SOFT TISSUES: Missing soft tissues in the area of the distal phalanx of the second finger. Reviewed, dictated and finalized at location A.
== END 2023-10-06 11:23 | disposition home or self-care (01) ==
LOC: ANHIMG 11:23
PROVIDERS: PCP Emergency Medicine; Visit Provider Plastic Surgery
DX: S68.111A Complete traumatic metacarpophalangeal amputation of left index finger, initial encounter (principal); X58.XXXA Exposure to other specified factors, initial encounter
CPT/HCPCS: 73140

== ENCOUNTER 2023-11-27 09:14 | Outpatient (CLI) | payer BC, SELFPAY ==
[2023-11-27 10:16] LABS: Thyroid Stimulating Hormone Reflex 2.47 u/IU/mL (0.36-3.74)
== END 2023-11-27 09:15 | disposition home or self-care (01) ==
LOC: CHSLAB 09:16
PROVIDERS: PCP Emergency Medicine; Visit Provider Nurse Practitioner Obstetrics & Gynecology
DX: R79.89 Other specified abnormal findings of blood chemistry (principal); R63.5 Abnormal weight gain
CPT/HCPCS: 36415; 84443

== ENCOUNTER 2024-04-29 16:10 | Outpatient (CLI) | payer BC, SELFPAY ==
--- NOTE | ~2024-04-29 | MM_ITS ---
EXAMINATION: MM screening [facility] BI w luda HISTORY: Screening TECHNIQUE: Craniocaudal and mediolateral oblique 3-D tomosynthesis images were obtained and synthetic 2-D images were generated. CAD analysis was submitted and interpreted. COMPARISON: 12/21/2021 and dating back to 08/07/2017 BREAST PARENCHYMAL COMPOSITION: There are scattered areas of fibroglandular density. FINDINGS: Punctate calcifications are detected bilaterally, stable and benign in appearance. Redemonstration of an intramammary lymph node within the upper outer quadrant of the right breast. Otherwise stable parenchymal pattern without suspicious microcalcifications, architectural distortion , discrete masses or significant asymmetry. IMPRESSION: 1. No mammographic/tomographic evidence of malignancy. 2. Recommend routine screening mammography in one year. BI-RADS Category 2: Benign finding(s). Reviewed, dictated and finalized at location A. IST CABIN KEEPER
--- OUTSIDE RECORDS SUMMARY | 2024-04-29 16:55 | XMS_ITS | Encounter Summary ---
Author Organization [facility] Address [address] [place] [address] Care Team Providers Care Herd Tester Name Role Phone Unavailable Primary Care Provider Unavailabl e Encounter Details Date Type Department Care Team (Late st Contact Info) Description 08/19/2002 Outpatient Historical [facility] EXTRACTOR OPERATOR SOLVENT PROCESS - [address] [place] [address] Christiano Martin MD [address] [place] [address] [place] [id number] Social History Tobacco Use Types Packs/Day Years Used Date Smoking Tobacco: Never Assessed Comments Unknown Sex and Gender Information Value Date Recorded Sex Assigned at Not on file 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
--- OUTSIDE RECORDS SUMMARY | 2024-04-29 16:56 | XMS_ITS | Clinical Summary ---
Author Organization [facility] Address [facility] [place] [address] Care Team Providers Care Medicaid Analyst Name Role Phone Jim Villanueva MD Primary Care Provider [phone] Allergies No known active allergies Medications DULoxetine HCl 40 MG Capsule Delayed Release Sprinkle Take 1 capsule by mouth daily. 0 Active traZODone 100 MG tablet Take 200 mg by mouth nightly at bedtime. Active ELURYNG 0.12-0.015 MG/24HR RING INSERT 1 RING VAGINALLY EVERY MONTH CONTINUOUSLY 2 Active irbesartan 150 MG tablet Take 150 mg by mouth daily. 2 Active carvedilol 6.25 MG tablet Take 1 tablet (6.25 mg total) by mouth 2 (two) times daily. 60 tablet 3 2 Active Active Problems Problem Noted Date Diagnosed Date GERD (gastroesophageal reflux disease) Tachycardia Palpitations Hypertension Family History Medical History Relation Comments Alcohol Abuse Father Diabetes Father Heart Disease Father Hypertension Father Liver Disease Father Relation Status Comments Father Mother Alive Social History Tobacco Use Types Packs/Day Years Used Date Smoking Tobacco: Never Smokeless Tobacco: Never Alcohol Use Standard Drinks/Week Comments Never 0 (1 standard drink = 0.6 oz pur e alcohol) Comments Unknown Sex and Gender Information Value Date Recorded Sex Assigned at Not on file Legal Sex Female 12:47 PM CDT Gender Identity Not on file Sexual Orientation Not on file Last Filed Vital Signs Vital Sign Reading Time Taken Comments Blood Pressure 140/90 06/20/2021 10:22 AM CDT Pulse 103 06/20/2021 10:22 AM CDT Temperature - - Respiratory Rate - - Oxygen Saturation 92% 08/04/2020 9:51 AM CDT Inhaled Oxygen Concentration - - Weight 117.5 kg (259 lb) 06/20/2021 10:22 AM CDT Height 167.6 cm (5' 6 ) 06/20/2021 10:22 AM CDT Body Mass Index 41.8 06/20/2021 10:22 AM CDT Plan of Treatment Health Maintenance Due Date Last Done Comments Cervical Cancer Screening Pa p Smear (Age 30 to 64) Every 3 Years 1972 Colorectal Cancer Screening Colonoscopy (10 Years) 1972 Annual Physical 08/09/1975 PHQ-2 (Physician [place]) 1984 Hepatitis C 1990 DTaP, Tdap and Td Vaccines ( 1 - Tdap) 08/09/1991 Hepatitis B Vaccines (1 of 3 - 19+ 3-dose series) 08/09/1991 Cervical Cancer Screening Pa p with HPV Testing (Age 30 to 64) Every 5 Years 2002 Cervical Cancer Screening with HPV 2002 Mammogram Screening 2012 Zoster Vaccines (1 of 2) 2022 COVID-19 Vaccine ( - 2023-2 5 season) 2023 Influenza Adult (#1) 2023 PHQ-2 (Physician [place]) 02/25/2024 Meningococcal B Vaccine Aged Out No l onger eligible based on patient's age to complete this topic Meningococcal Vaccine Aged Out No dania angelo eligible based on patient's age to complete this topic Pneumococcal Vaccine: Pediat rics (0 to 5 Years) and At-Risk Patients (6 to 64 Years) Aged Out No longer eligible b ased on patient's age to complete this topic RSV Immunizations Under 20 Months Aged Out No longer eligible based on patient's age to complete this topic Insurance [employer] Care Teams Medicaid Analyst Relationship Specialty Start Date End Date Jim Villanueva MD PCP - General FAMILY PRACTICE 07/12/20
--- OUTSIDE RECORDS SUMMARY | 2024-04-29 16:56 | XMS_ITS | Clinical Summary ---
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
--- OUTSIDE RECORDS SUMMARY | 2024-04-29 16:56 | XMS_ITS | Referral Summary ---
Author Organization [facility] [address] Address [address] [place] [address] Care Team Providers Care Merchandise Team Manager Name Role Phone Jim Villanueva MD Primary Care Provider [phone] Allergies No known active allergies Medications Cymbalta 30 mg capsule 9 Active carvediloL (COREG) 6.25 mg tablet Take 1 tablet (6.25 mg total) by mouth Active traZODone (DESYREL) 100 mg tablet Take 1 tablet (100 mg total) by mouth 4 Active irbesartan-hydr ochlorothiazide (AVALIDE) 150-12.5 mg per tablet Take 1 tablet by mouth daily Active dextroamphetami ne-amphetamine XR (ADDERALL XR) 30 mg 24 hr capsule Take 1 tablet by mouth daily 1 Active clonazePAM (KlonoPIN) 0.5 mg tablet TAKE 1/2 TO 1 TABLET UP TO MAX TWICE DAILY FOR SEVERE ANXIETY NEEDED 1 Active etonogestreL-et hinyl estradioL (EluRyng) 0.12-0.015 mg/24 hr vaginal ring INSERT 1 RING VAGINALLY EVERY MONTH CONTINUOUSLY 1 Active celecoxib (CeleBREX) 100 mg capsule TAKE 1 CAPSULE BY MOUTH TWICE A DAY 60 capsule 3 Active Active Problems Problem Noted Date Diagnosed Date GERD (gastroesophageal reflux disease) 3 Hypertension 09/24/2022 Palpitations 09/24/2022 Tachycardia 09/24/2022 Iron deficiency anemia refractory to iron therap y 04/29/2019 Chronic tonsillitis 06/05/2017 Laryngopharyngeal reflux 06/05/2017 Tinnitus, bilateral 06/05/2017 Tonsil stone 06/05/2017 Lymphadenopathy, cervical 06/05/2017 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 Social History Tobacco Use Types Packs/Day Years Used Date Smoking Tobacco: Never Smokeless Tobacco: Never Tobacco Cessation:Counseling Given: Not Answered Personal Safety Answer Date Recorded Getting School Help Needed Not on file 05/08 Comments Unknown Sex and Gender Information Value Date Recorded Sex Assigned at Not on file Legal Sex Female 6:27 PM RN ENT Gender Identity Female 09/22/2022 5:55 PM CDT Sexual Orientation Not on file Last Filed Vital Signs Vital Sign Reading Time Taken Comments Blood Pressure 152/99 11/13/2022 1:08 PM CDT Pulse 81 11/13/2022 1:08 PM CDT Temperature - - Respiratory Rate - - Oxygen Saturation - - Inhaled Oxygen Concentration - - Weight 115.1 kg (253 lb 11.2 oz) 11/13/2022 1:08 PM CDT Height 169.5 cm (5' 6.75 ) 11/13/2022 1:08 PM CD T Body Mass Index 40.03 11/13/2022 1:08 PM CDT Plan of Treatment Not on file Insurance [facility] ACCESS CHOICE ANTH ACCESS CHOICE Care Teams Merchandise Team Manager Relationship Specialty Start Date End Date Jim Villanueva MD PCP - General Family Medicine 07/11/20
--- OUTSIDE RECORDS SUMMARY | 2024-04-29 16:56 | XMS_ITS | Encounter Summary ---
Author Organization [facility] Address [address] [place] [address] Care Team Providers Care Dishwasher Preparer Name Role Phone Unavailable Primary Care Provider Unavailabl e Encounter Details Date Type Department Care Team (Late st Contact Info) Description 07/10/2000 Outpatient Historical [facility] CREATIVE TECHNOLOGIST - Medical 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
--- OUTSIDE RECORDS SUMMARY | 2024-04-29 16:56 | XMS_ITS | Encounter Summary ---
Author Organization [facility] Address [address] [place] [address] Phone Care Team Providers Care Environmental Aid Name Role Phone Jim Villanueva Primary Care Provider [phone] Encounter Details Date Type Department Care Team (Late st Contact Info) Description 11/13/2020 Telephone [facility] [address] [place] [address] Mikhail Salazar MD [address] [place], [place] [id number] Social History Tobacco Use Types Packs/Day Years Used Date Smoking Tobacco: Never Smokeless Tobacco: Never Alcohol Use Standard Drinks/Week Comments No 0 (1 standard drink = 0.6 oz pur e alcohol) PHQ-2 Answer Date Recorded Total Score - Questions 1-9 0 03/2020 Comments Unknown Sex and Gender Information Value Date Recorded Sex Assigned at Not on file 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 No / Unsure 10/26/2020 12:41 PM CDT documented as of this encounter Miscellaneous Notes * Telephone Encounter - Coleen Freedman - 11/14/2020 8:26 AM CDT REFERRAL AND RECORDS FAXED TO [facility] AND THEY WILL GET THE PATIENT SCHEDULED. * Telephone Encounter - Mikhail Salazar MD - 11/13/2020 10:34 AM CDT Send to [facility] * Telephone Encounter - Coleen Freedman - 11/13/2020 10:29 AM CDT WE HAVE BEEN TRYING TO GET THIS PT SET UP WITH AT [facility]. PT HAS NOT RETURNED THEIR CALLS. I SPOKE WITH THE PATIENT AND GAVE THE INFORMATION TO GET SCHEDULED AND THE PT HAS STILL NOT GIVEN THEM A CALL. WHAT WOULD YOU LIKE TO DO WITH THIS REFERRAL? documented in this encounter Plan of Treatment Not on file documented as of this encounter Visit Diagnoses Not on filedocumented in this encounter Additional Health Concerns Assessment Noted Time PHQ-9 Depression Total Score: 0 10/27/19 21 1:03 PM CDT documented as of this encounter Care Teams Environmental Aid Relationship Specialty Start Date End Date Jim Villanueva [address] [facility] [place] [address] PCP - General Family Medicine 03/24/20 documented as of this encounter
--- OUTSIDE RECORDS SUMMARY | 2024-04-29 16:56 | XMS_ITS | Encounter Summary ---
Author Organization [facility] Address [address] [place] [address] Care Team Providers Care Supervisor Advice Name Role Phone Unavailable Primary Care Provider Unavailabl e Encounter Details Date Type Department Care Team (Late st Contact Info) Description 10/25/1999 Outpatient Historical [facility] LINEN SUPERVISOR - Medical [facility] [address] 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
--- OUTSIDE RECORDS SUMMARY | 2024-04-29 16:56 | XMS_ITS | Encounter Summary ---
Author Organization [facility] Address [address] [place] [address] Care Team Providers Care Aqua Ammonia Operator Name Role Phone Unavailable Primary Care Provider Unavailabl e Encounter Details Date Type Department Care Team (Late st Contact Info) Description 03/05/2006 Outpatient Historical [facility] KNITTER WIRE MESH - [address] [place] [address] Hadley Mcleod MD [address] [place] [address] [place] [address] Social History Tobacco Use Types Packs/Day Years Used Date Smoking Tobacco: Never Assessed Comments Unknown Sex and Gender Information Value Date Recorded Sex Assigned at Not on file 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
--- OUTSIDE RECORDS SUMMARY | 2024-04-29 16:56 | XMS_ITS | Encounter Summary ---
Author Organization [facility] Address [address] [place] [address] Care Team Providers Care Checkering Machine Adjuster Name Role Phone Unavailable Primary Care Provider Unavailabl e Encounter Details Date Type Department Care Team (Late st Contact Info) Description 12/06/1999 Outpatient Historical [facility] DIRECTOR NON PROFIT - Medical [facility] [address] [facility] [address] [address] Van Mooney MD [address] [place], [place] [address] Social History Tobacco Use Types Packs/Day Years Used Date Smoking Tobacco: Never Assessed Comments Unknown Sex and Gender Information Value Date Recorded Sex Assigned at Not on file 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
--- OUTSIDE RECORDS SUMMARY | 2024-04-29 16:56 | XMS_ITS | Clinical Summary ---
Author Organization [facility] Address [address] [place] [address] Phone Care Team Providers Care Counseling Services Director Name Role Phone Jim Villanueva Primary Care Provider [phone] Allergies No known active allergies Medications traZODone (DESYREL) 100 MG Tablet Take 2 Tabs by mouth. 5 Active clonazePAM (KlonoPIN) 0.5 MG Tablet TAKE 1/2 TO 1 TABLET UP TO MAX TWICE DAILY FOR SEVERE ANXIETY NEEDED 1 Active irbesartan (AVAPRO) 150 MG Tablet Take 150 mg by mouth daily. 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 Tonsil stone 06/05/2017 Chronic tonsillitis 06/05/2017 Tinnitus, bilateral 06/05/2017 Family History Medical History Relation Name Comments Alcohol Abuse Father Cirrhosis Father Diabetes Father Heart Disease Father Hypertension Father Relation Name Status Comments Father Social History Tobacco Use Types Packs/Day Years Used Date Smoking Tobacco: Never Smokeless Tobacco: Never Alcohol Use Standard Drinks/Week Comments No 0 (1 standard drink = 0.6 oz pur e alcohol) PHQ-2 Answer Date Recorded Total Score - Questions 1-9 0 0 03/2020 Comments Unknown Sex and Gender Information Value Date Recorded Sex Assigned at Not on file 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 Gender Identity Not on file Sexual Orientation Not on file 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 Not on file Not on file Not on f ile Last Filed Vital Signs Vital Sign Reading Time Taken Comments Blood Pressure 144/90 10/26/2020 1:01 PM CDT Pulse 101 10/26/2020 1:01 PM CDT Temperature 36.3 C (97.3 F) 10/26/2020 1:01 PM CDT Respiratory Rate 18 10/26/2020 1:01 PM CDT Oxygen Saturation 97% 10/26/2020 1:01 PM CDT Inhaled Oxygen Concentration - - Weight 109.3 kg (240 lb 14.4 oz) 10/26/2020 1:01 PM CDT Height 167.6 cm (5' 6 ) 10/26/2020 1:01 PM CDT Body Mass Index 38.88 10/26/2020 1:01 PM CDT Plan of Treatment Health Maintenance Due Date Last Done Comments Hepatitis C Virus (HCV) Screening 1972 TdaP Immunization 1972 Hepatitis B Immunization (1 of 3 - 19+ 3-dose series) 08/09/1991 Pap Smear 1993 Cervical Cancer Screening (CCS) 2002 HPV/Cotest 2002 Colonoscopy 2017 Colorectal Cancer Screening 2017 Cologuard 2022 Immunochemical Fecal Occult Blood 2022 Mammogram 2022 Pneumococcal Immunization (5 0+ years) (1 of 1 - PCV) 2022 Zoster Immunization (1 of 2) 2022 Influenza Immunization (#1) 2023 SARS-COV-2 Immunization ( - 2023- season) 2023 Respiratory Syncytial Virus (RSV) Immunization (Adult) (1 - 1-dose 75+ series) 08/09/2047 Meningococcal Immunization (ACWY) Aged Out No longer eligible based on patient's age to complete this topic Pneumococcal Immunization Combined Aged Out No longer eligible based on patient's age to complete this topic Rotavirus Immunization Aged Out No lo nger eligible based on patient's age to complete this topic Insurance [email or web address] [facility] [email or web address] [facility] Care Teams Counseling Services Director Relationship Specialty Start Date End Date Jim Villanueva [address] [place] [address] PCP - General Family Medicine 03/24/20
--- OUTSIDE RECORDS SUMMARY | 2024-04-29 16:56 | XMS_ITS | Encounter Summary ---
Author Organization [facility] Address [address] [place] [address] Care Team Providers Care Rehabilitation Clerk Name Role Phone Unavailable Primary Care Provider Unavailabl e Encounter Details Date Type Department Care Team (Late st Contact Info) Description 01/28/2002 Outpatient Historical [facility] MARINE RAILWAY OPERATOR - [address] [place] [address] Christiano Martin MD [address] [place] [address] [place] [address] Social History Tobacco Use Types Packs/Day Years Used Date Smoking Tobacco: Never Assessed Comments Unknown Sex and Gender Information Value Date Recorded Sex Assigned at Not on file 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
--- OUTSIDE RECORDS SUMMARY | 2024-04-29 16:56 | XMS_ITS | Continuity of Care Document ---
Author Organization [facility] Address [address] [facility] [address] [place] [address] Phone Care Team Providers Care Sap Abap Programmer Name Role Phone Mao OD, Matias Unavailable Unavailable Advance Directives Directive Yes / No Effective Date File Name No Information Encounters Encounter Description Practice Location Reason(s) For Visit Diagnoses Date Provider Providers Copied on Encounter [facility], [address], [place], [place], [id number], [place] tel:[phone] [facility] No Information May-2 9-200 4 Mao OD Matias. [address] , [address], [place], [address], [place]. tel:[phone] Family History Family Member Type Diagnosis Age At Onset No Information Payers Payer name Insurance type Covered alliance party ID Authoriza tion(s) No Information Social History Type Description Quantity Date Captured Comments Sex Female Smoking Status No Information Chief Complaint And Reason For Visit No Information Reason For Referral Reason For Referral No Information History Of Present Illness Encounter Date Complaint History Of Prese nt Illness No Information Functional Status Date Functional Assessmen t No Information Instructions Date Instruction Additional Infor mation No Information Assessments Type Assessment Date No Information Patient Care Teams Name Effective Dates (start - stop) Status Members No Information
--- OUTSIDE RECORDS SUMMARY | 2024-04-29 16:56 | XMS_ITS | Clinical Summary ---
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 Surgical History Surgery Date Site/Laterality Comments EYE SURGERY KNEE SURGERY Right Social History Tobacco Use Types Packs/Day Years Used Date Smoking Tobacco: Never Smokeless Tobacco: Never Tobacco Cessation:Counseling Given: Not Answered Personal Safety Answer Date Recorded Getting School Help Needed Not on file 05/08 Comments Unknown Sex and Gender Information Value Date Recorded Sex Assigned at Not on file 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 Gender Identity Female 09/22/2022 5:55 PM CDT Sexual Orientation Not on file Obstetrics History Last Filed Vital Signs Vital Sign Reading [...] 11/13/2022 1:08 PM CDT Plan of Treatment Health Maintenance Due Date Last Done Comments Breast Cancer Screening-Mammogram 1972 Cervical Cancer Screening 1972 Colon Cancer Screening-Colonoscopy 1972 Depression Screening 1972 Hepatitis C Screening 1972 DTaP/Tdap/Td Vaccine (1 - Tdap) 08/09/1983 Hepatitis B Screening 1990 Regular Well Visit/Exam 18-64 1990 Zoster Vaccine (1 of 2) 2022 Influenza Vaccine (#1) 2023 Pneumococcal vaccine <65 Aged Out No longer eligible based on patient's age to complete this topic Insurance [facility] ACCESS CHOICE ANTHEM ACCESS CHOICE Care Teams Gerontology Aide Relationship Specialty Start Date End Date Jim Villanueva MD PCP - General Family Medicine 07/11/20
--- OUTSIDE RECORDS SUMMARY | 2024-04-29 16:56 | XMS_ITS | Continuity of Care Document ---
Author Organization [facility] Address [address] [place] [address] [place] [address] Phone Care Team Providers Care Pest Management Supervisor Name Role Phone Jim Villanueva MD Unavailable Unavailable Allergies, Adverse Reactions, Alerts Substance Reaction Status Criticality No Known Allergies Active No Inform ation Medications Medication Instructions Dosage Effective Dates (start - stop) Status Comments Synthroid 50 mcg tablet take 1 tablet by oral route every day 50 MCG - Active Adderall 30 mg tablet take 1 tablet by oral route every morning 30 MG - Active irbesartan 150 mg-hydrochlorothiaz amira 12.5 mg tablet take 1 tablet by oral route every day 1.00 tablet - Active Coreg 6.25 mg tablet take 1 Tablet by oral route 2 times every day with food 6.25 MG - Active trazodone 100 mg tablet take 1 tablet by oral route every bedtime after meals 100 MG - Active Cymbalta 60 mg capsule,delayed release take 1 capsule by oral route every day 60 MG - Active Procedures Procedure Date OFFICE/OUTPATIENT VISIT, EST OFFICE/OUTPATIENT VISIT, EST OFFICE/OUTPATIENT VISIT, EST PREV VISIT, EST, AGE 40-64 OFFICE/OUTPATIENT VISIT, EST OFFICE/OUTPATIENT VISIT, EST OFFICE/OUTPATIENT VISIT, EST PREV VISIT, EST, AGE 40-64 OFFICE/OUTPATIENT VISIT, EST OFFICE/OUTPATIENT VISIT, EST OFFICE/OUTPATIENT VISIT, EST PREV VISIT, EST, AGE 40-64 OFFICE/OUTPATIENT VISIT, EST OFFICE/OUTPATIENT VISIT, EST PREV VISIT, NEW, AGE 40-64 OFFICE/OUTPATIENT VISIT, NEW Advance Directives Directive Yes / No Effective Date File Name No Information Encounters Encounter Description Practice Location Reason(s) For Visit Diagnoses Date Provider Providers Copied on Encounter OFFICE/OUTPA TIENT VISIT, EST [facility], [address], [place], [place], [id number], [place] tel:[phone] [facility] hypothyroi dism1 (chief complaint) Hypothyroidism 4 Rich Lund [address], [place], [place], [address] , [place]. tel:[phone] OFFICE/OUTPA TIENT VISIT, [facility], [address], [place], [place], [id number], [place] tel:[phone] [facility] hypothyroi dism1 (chief complaint) HLP (chief complaint) glucose1 (chief complaint) HypothyroidismHyper glycemiaMixed hyperlipidemiaEncnt r screen mammogram for malignant neoplasm of breast 4 Rich Lund [address], [place], [place], [address] , [place]. tel:[phone] OFFICE/OUTPA TIENT VISIT, EST [facility], [address], [place], [place], [address], [place] tel:[phone] [facility] COVID1 (chief complaint) Viral infection 4 Rich Fernandez. [address], [place], [place], [address] , [place]. tel:[phone] PREV VISIT, EST, AGE 40-64 [facility], [address], [place], [place], [id number], [place] tel:[phone] [facility] Medicine physical (chief complaint) Encounter for general adult medical exam w abnormal findingsEssential (primary) hypertensionGeneral ized Anxiety DisorderPrimary insomniaAbnormal weight gainTinnitus, bilateral Fe 4 Rich Fernandez. [address], [place], [place], [id number] , [place]. tel:[phone] OFFICE/OUTPA TIENT VISIT, EST [facility], [address], [place], [place], [id number], [place] tel:[phone] [facility] HTN (chief complaint) glucose1 (chief complaint) thyroid (chief complaint) ameenorrhe a1 (chief complaint) Essential (primary) hypertensionHypothy roidismAmenorrheaHy perglycemiaEncounte r for oth screening for malignant neoplasm of breast 2 Rich Lund [address], [place], [place], [address] , [place]. tel: [phone] OFFICE/OUTPA TIENT VISIT, EST [facility], [address], [place], [place], [address], [place] tel:[phone] [facility] thyroid1 (chief complaint) glucose1 (chief complaint) HTN (chief complaint) amenorrhea 1 (chief complaint) iron deficiency 1 (chief complaint) HyperglycemiaMixed hyperlipidemiaEssen tial (primary) hypertensionHypothy roidismAmenorrheaIr on deficiency anemiaAbnormal weight gain 2 Rich Lund [address], [place], [place], [address] , [place]. tel:[phone] PREV VISIT, EST, AGE 40-64 [facility], [address], [place], [place], [address], [place] tel:[phone] [facility] physical (chief complaint) Encounter for general adult medical exam w abnormal findingsIron deficiency anemiaPalpitationsG eneralized Anxiety DisorderPrimary insomniaFlushingEss ential (primary) hypertension 2 Rich Fernandez. [address], [place], [place], [address] , [place]. tel:[phone] OFFICE/OUTPA TIENT VISIT, EST [facility], [address], [place], [place], [address], [place] tel:[phone] [facility] sore throat1 (chief complaint) HTN (chief complaint) palpitatio n1 (chief complaint) Acute pharyngitisEssentia l (primary) hypertensionPalpita tionsEncounter for oth screening for malignant neoplasm of breast 1 Rich Lund [address], [place], [place], [address] , [place]. tel:[phone] OFFICE/OUTPA TIENT VISIT, EST [facility], [address], [place], [place], [address], [place] tel:[phone] [facility] HTN (chief complaint) palpitatio n1 (chief complaint) period1 (chief complaint) Essential (primary) hypertensionPalpita tionsMenorrhagia 1 Rich Lund [address], [place], [place], [address] , [place]. tel:[phone] PREV VISIT, EST, AGE 40-64 [facility], [address], [place], [place], [address], [place] tel:[phone] [facility] physical (chief complaint) Encounter for general adult medical exam w abnormal findingsIron deficiency anemiaEssential (primary) hypertensionGERD w/o esophagitisPalpitat ionsGeneralized Anxiety Disorder 1 Rich Lund [address], [place], [place], [address] , [place]. tel:[phone] [facility], [address], [place], [place], [address], [place] tel:[phone] [facility] Inconclusive mammogram 0 Rich Lund [address], [place], [place], [address] , [place]. [phone] OFFICE/OUTPA TIENT VISIT, EST [facility], [address], [place], [place], [address], [place] tel:[phone] [facility] anemia1 (chief complaint) GERD1 (chief complaint) anxieyt1 (chief complaint) renal (chief complaint) HTN (chief complaint) Iron deficiency anemiaGERD w/o esophagitisEssentia l (primary) hypertensionGeneral ized Anxiety DisorderRenal disease 0 Rich Fernandez. [address], [place], [place], [address] , [place]. tel:[phone] PREV VISIT, NEW, AGE 40-64 [facility], [address], [place], [place], [address], [place] tel:[phone] [facility] PHysical (chief complaint) Encounter for general adult medical exam w abnormal findingsFatigueEsse ntial (primary) hypertensionGERD w/o esophagitisAbnormal weight gainHeadache 0 Rich Fernandez. [address], [place], [place], [address] , [place]. tel:[phone] Family History Family Member Type Diagnosis Age At Onset Mother Problem (finding) Alive and well Father Problem (finding) of alcohol issue 6 5 Sister Problem (finding) Alive and well Payers Payer name Insurance type Covered green party ID Authoriza tion(s) No Information Social History Type Description Quantity Date Captured Comments Alcohol Use Details No Caffeine Use Details Unknown Tobacco Use Status Current non-smoker Smoking Status Never smoker Sex Female Vital Signs Date / Time: Height Weight BMI Pulse Rate Blood Pressure Temperature Respiratory Rate Body Surface Area Head Circumference BMI percentile Pulse Ox Inhaled Ox 9:25 AM 66.00 in 257.00 lbs 41.4 8 kg/m eter (2) 86 /min 140/82 mm[Hg] 97.8 F 16 /min Chief Complaint And Reason For Visit From encounter dated '12/09/2023 09:17'. hypothyroidism1 (chief complaint). Description: Pt has hypothyroidism. Pt started synthroid severalmonths ago Pt denies any dysphagia or neck pain Pt feels more energy with synthroid. Her TSh is ok now Plan Of Treatment Date Type Action Status Referral Ordered: US THYROID ordered Referral Ordered: HEARING TEST PURE TONE AUDIOMETRY, AIR ordered Referral Ordered: Cardiology (related to Palpitations) ordered Referral Ordered: DOPPLER ECHO EXAM, HEART ordered Referral Ordered: Referrals: Cardiology. Evaluate and treat ordered Referral Ordered: MAMMOGRAM, ONE BREAST ordered Referral Ordered: Hematology (related to Iron deficiency anemia) ordered Referral Ordered: Referrals: Hematology. Evaluate and treat ordered Referral Ordered: COLONOSCOPY AND BIOPSY ordered Referral Ordered: MAMMOGRAM, SCREENING ordered Referral Ordered: SLEEP STUDY, ATTENDED ordered History Of Present Illness Encounter Date Complaint History Of Prese nt Illness hypothyroidism1 Pt has hypothyro idism. Pt started synthroid several months ago Pt denies any dysphagia or neck pain Pt feels more energy with synthroid. Her TSh is ok now glucose1 pt has borderlin e high glucose Pt denies any polyuria, polydipsia HLP Pt has mild HLP hypothyroidism1 pt has chronic h ypothyroidism Pt denies any dysphagia or neck pain Pt has difficulty losing weight and she feels sluggish COVID1 pt c/o sore thro at, myalgia, sinus congestion, dry cough, mild sob, low grade temp x 2 days Pt states that she went to [email or web address] last week and visited a friend who tested positive for COVID yesterday. Pt is not vaccinated for COVID. Pt wants to try paxlovid. physical Pt needs annual physical. Pt has chronic anxiety and depression Pt takes cymbalta and doing ok Pt denies any suicidal or homicidal Pt denies any crying spells. Patient has ADD. Patient has inattentive type. Patient feels scatterbrained. Patient feel poor focus and difficulty completing tasks. Patient states that Adderall is helping with symptoms. Patient feels more focused. Pt feels more energy. Patient denies any headache, dry mouth, headache, chest pain. Patient denies any appetite loss. Pt is on adderall by psychiatry and doing ok Pt has chronic insomnia Pt is on trazodone qhs and doing ok. Pt has HTN Pt takes irbesartan/hctz and coreg and her bp is ok. Pt is obese Pt has difficulty losing weight. Pt has chronic bilateral hearing loss and also tinnitus, worse on left side. Pt denies any ear pain HTN Pt has HTN. Pt t akes coreg and irbesartan/hctz and her bp. Pt denies any chest pain or sob or headache ameenorrhea1 P has irregular period Pt stopped NuvaRing and feels better. Pt feels more energy. Pt is perimenopausal thyroid Pt has history o f mild low thyroid Pt denies any dysphagia or neck pain. her TSH and TPO are ok glucose1 Pt has borderlin e high glucose. Pt denies any polyuria, polydipsia. Her A1c is good thyroid1 Pt has borderlin e low thyroid. Pt denies any dysphagia or neck pain. Pt does feel mild fatigue glucose1 Pt has high gluc ose and TG. Pt is not on any diet HTN Pt has HTN Pt ta kes irbesartan. and coreg and her bp is high. Pt denies any chest pain or headache. Her bp is around 160 at home. amenorrhea1 Pt has been usin g nuvaring continuously without break and she does not have period. Pt denies any REGISTERED ACCOUNT ADMINISTRATOR bleeding. Pt has no estrogen but FSH and LH are ok iron deficiency1 Pt has history of iron deficiency anemia, which resolved now. Pt has not had any iron infusion for more than one year. Pt denies any GI bleeding physical Pt needs annual physical. Pt has history of anemia due to heavy period Pt has not had any heavy period since on IUD. Pt denies any GI bleeding. Pt has HTN and benign palpitation Pt sees cardiology Pt is on coreg. Pt takes irbesartan and her bp is borderline high at home around 150s. Pt denies any chest pain. Pt has not had any palpitation since on coreg. Pt has chronic anxiety and depression and insomnia Pt takes cymbalta 30 mg and trazodone PRN qhs. Pt denies any suicidal or homicidal thought. Pt denies any crying spells. Pt also has been having hot flashes recently. Pt has been having regular period but not heavy. Pt denies any other complaints palpitation1 Pt has intermitt ent cardiac palpitation. Pt denies any acute symptoms Pt has not decided about cardiac ablation yet HTN Pt has HTN. Pt h as been taking irbesartan and her bp is around 130/80 on average pt is happy with meds Pt denies any chest pain or headache sore throat1 Pt c/o acute ons et of sore throat since last friday. Pt notices mild dysphagia due to pain Pt denies any drooling .Pt notices lymph node swelling around neck area. Pt denies any fever, headache or rash. Pt denies any trouble with breathing. period1 Pt is on nuvarin g now and she does not have heavy period but she thinks that nuvaring causes her bp to rise. palpitation1 Pt has intermitt ent palpitation. Pt had holter done which showed ? Av re-entry. Cardiology told her to consider ablation but she is still considering it. pt has palpitation randomly throughout the day without any trigger. Pt denies any sob HTN Pt has intermitt ent HTN Pt denies chest pain pt denies any sob. Pt felt some headache on Friday and her checked her bp which was 170/100. Pt felt fatigue also. Pt states that her bp usually runs around 130/70 but sometimes will spike up for unknown reason Pt is very stressed out recently. pt also thinks that nuvaring caused her HTN. Pt currently feels fine. physical PT needs annual physical Pt has history of iron deficiency anemia due to heavy period. Pt denies any GI bleeding and she never did the EGD and colonoscopy Pt denies any GERD and she is off omeprazole. Pt also stopped irbesartan and her bp is ok without it. Pt underwent D&C by it service manager and was told heavy period is caused by hormones and she was started on continuous nuvaring. Pt had iron infusion 5 months ago and she has not had repeat lab done yet by hematology. Pt currently denies any vaginal bleeding due to continuous nuvaring. Pt c/o intermittent chest palpitation, flutter feeling lasting 90 seconds or so each episodes for the past 3 months. Pt states that it occurs 1-2 per week randomly without any trigger factor. Pt denies any pre or syncope episodes. Pt denies any nausea, sweaty, etc Pt denies any chest pain or GERD Pt denies any exertional symptoms. Pt denies any sob or any calf pain or any recent travel or bedrest. Her is revenue inspector and checked her pulse which feels irregular and sometimes goes up to 160s during those palpitation episodes. Pt denies any acute symptoms .Pt denies any dizziness. Pt lost her pet dog recently and she feels more anxious and she is not handling the loss well per pt. Pt takes cymbalta and trazodone Pt sees psychiatrist Pt denies any suicidal or homicidal thought HTN Pt has HTN Pt ta kes irbesartan and her BP is much better. Pt states that headache resolved with irbesartan renal Pt has low renal . Pt has normal UO anxieyt1 Pt has anxiety a nd depression Pt takes cymbalta and trazodone and doing ok Pt denies any suicidal or homicidal thought .Pt denies any crying spells GERD1 Pt has chronic G ERD Pt takes omeprazole since last visit and she feels much better Pt denies any abd pain pt feels nausea all the time Pt denies any abd pain after food. anemia1 Pt has rather se christie anemia Pt feels fatigue. Pt denies any sob. Pt denies any chest pain. Pt denies any blood in urine or bowels Pt denies any headache .Pt has not done sleep study yet PHysical Pt needs annual physical. Pt has history of HTn. Pt used to take lisinopril but she has not had it for long time Pt states that her BP has been ok for several years until 3-4 weeks ago. her has been checking her BP at home and has been running around 150-160/95s. Pt also notices mild headache recently Pt denies any head injury Pt denies waking up at night with headache Pt denies any vision change or nausea, vomiting. Pt has anxiety and depression and insomnia Pt takes cymbalta and trazodone. and she sees psychiatrist .Pt feels fatigue Pt denies any snoring at night. Pt has rather severe heartburn. Pt could not tolerate zantac and pepcid .Pt notices mild nausea but no abdominal pain ,Pt gained 40 pounds during last two years Pt has not been very active. Pt feels too tired to do anything. Pt feels sluggish and poor focus throughout the day, Pt denies any sob Instructions Date Instruction Additional Infor brunilda No Information Assessments Type Assessment Date assessment Hypothyroidism Mental Status Date Cognitive Assessment Orientation - [place] ed to time, place, person, situation.
--- OUTSIDE RECORDS SUMMARY | 2024-04-29 16:56 | XMS_ITS | Encounter Summary ---
Author Organization [facility] Address [address] [place] [address] Care Team Providers Care Machine Tool Technician Instructor Name Role Phone Unavailable Primary Care Provider Unavailabl e Encounter Details Date Type Department Care Team (Late st Contact Info) Description 06/18/2001 Outpatient Historical [facility] PRETZEL TWISTER - Medical [facility] [phone] [facility] [address] [address] Van Mooney MD [address] [place], [place] [id number] Social History Tobacco Use Types Packs/Day Years Used Date Smoking Tobacco: Never Assessed Comments Unknown Sex and Gender Information Value Date Recorded Sex Assigned at Not on file Legal Sex Female 4:17 AM CERTIFIED ORTHOTIST/PEDORTHIST Gender Identity Not on file Sexual Orientation Not on file documented as of this encounter Plan of Treatment Not on file documented as of this encounter Visit Diagnoses Not on filedocumented in this encounter
--- OUTSIDE RECORDS SUMMARY | 2024-04-29 16:56 | XMS_ITS | Encounter Summary ---
Author Organization [facility] Address [address] [place] [address] Care Team Providers Care Embedded Software Development Engineer Name Role Phone Unavailable Primary Care Provider Unavailabl e Encounter Details Date Type Department Care Team (Late st Contact Info) Description 05/17/2004 Outpatient Historical [facility] CYCLE CONSULTANT - [address] [place] [address] Christiano Martin MD [address] [place] [address] [place] [phone] Social History Tobacco Use Types Packs/Day Years Used Date Smoking Tobacco: Never Assessed Comments Unknown Sex and Gender Information Value Date Recorded Sex Assigned at Not on file Legal Sex Female 4:17 AM SENIOR ACCOUNTING MANAGER Gender Identity Not on file Sexual Orientation Not on file documented as of this encounter Plan of Treatment Not on file documented as of this encounter Visit Diagnoses Not on filedocumented in this encounter
--- OUTSIDE RECORDS SUMMARY | 2024-04-29 16:56 | XMS_ITS | Encounter Summary ---
Author Organization [facility] Address [address] [place] [address] Care Team Providers Care Regasification Plant Operator Name Role Phone Unavailable Primary Care Provider Unavailabl e Encounter Details Date Type Department Care Team (Late st Contact Info) Description 08/14/2000 Outpatient Historical [facility] JOB ESTIMATOR - Medical [facility] [phone] [facility] [address] [address] Van Mooney MD [address] [place], [place] [id number] Social History Tobacco Use Types Packs/Day Years Used Date Smoking Tobacco: Never Assessed Comments Unknown Sex and Gender Information Value Date Recorded Sex Assigned at Not on file Legal Sex Female 4:17 AM MEDICAL ECONOMICS CONSULTANT Gender Identity Not on file Sexual Orientation Not on file documented as of this encounter Plan of Treatment Not on file documented as of this encounter Visit Diagnoses Not on filedocumented in this encounter
--- OUTSIDE RECORDS SUMMARY | 2024-04-29 16:56 | XMS_ITS | Encounter Summary ---
Author Organization [facility] Address [address] [place] [address] Care Team Providers Care Cognos Bi Administrator Name Role Phone Unavailable Primary Care Provider Unavailabl e Encounter Details Date Type Department Care Team (Late st Contact Info) Description 04/28/2003 Outpatient Historical [facility] SURVEILLANCE OBSERVER - [address] [place] [address] Christiano Martin MD [address] [place] [address] [place] [phone] Social History Tobacco Use Types Packs/Day Years Used Date Smoking Tobacco: Never Assessed Comments Unknown Sex and Gender Information Value Date Recorded Sex Assigned at Not on file Legal Sex Female 4:17 AM HOG SAWYER Gender Identity Not on file Sexual Orientation Not on file documented as of this encounter Plan of Treatment Not on file documented as of this encounter Visit Diagnoses Not on filedocumented in this encounter
== END 2024-04-29 16:11 | disposition home or self-care (01) ==
LOC: ANHIMG 16:11
PROVIDERS: PCP Emergency Medicine; Visit Provider Emergency Medicine
DX: Z12.31 Encounter for screening mammogram for malignant neoplasm of breast (principal)
CPT/HCPCS: 77063; 77067

== ENCOUNTER 2025-02-15 09:53 | Outpatient (CLI) | payer BC, SELFPAY ==
[2025-02-15 10:11] LABS: Hematocrit 43.4 % (35.0-49.0); Hemoglobin 14.3 g/dL (12.0-15.0); Immature Granulocyte Percent A 0.5 % (0.0-0.0); Lymphocytes Absolute Auto 1.55 K/mm3 (1.10-4.50); Mean Corpuscular HGB Conc 32.9 g/dL (32-36); Mean Corpuscular Hemoglobin 28.2 pg (27.0-31.0); Mean Corpuscular Volume 85.6 fL (78.0-102.0); Nucleated Red Blood Cells Absolute Auto 0.00 K/mm3 (0.00-0.00); Nucleated Red Blood Cells Perc 0.0 % (0-0.0); Platelet Count Result 273 K/mm3 (150-420); Red Blood Count 5.07 M/mm3 (4.20-5.40); White Blood Count 6.3 K/mm3 (4.8-10.8)
[2025-02-15 10:12] LABS: Add Urine Microscopic? NO; Appearance Urine Clear (Clear); Glucose Urine UA Negative (Negative); Leukocyte Esterase Ur Negative LEU/UL (Negative); Nitrate Urine Negative (Negative); Specific Grav Ur 1.015 (1.010-1.020)
--- OUTSIDE RECORDS SUMMARY | 2025-02-15 10:21 | XMS_ITS | Clinical Summary ---
Author Organization [facility] Address [address] [facility] Attn: [place] [address] Care Team Providers Care Technical Business Systems Analyst Name Role Phone Unavailable Primary Care Provider Unavailabl e Social History Tobacco Use Types Packs/Day Years Used Date Smoking Tobacco: Never Assessed Comments Unknown Sex and Gender Information Value Date Recorded Sex Assigned at Not on file Legal Sex Female 4:17 AM PAPERHANGER ASSISTANT Gender Identity Not on file Sexual Orientation Not on file Plan of Treatment Health Maintenance Due Date Last Done Comments DTAP/TDAP/TD VACCINES (1 - Tdap) 08/09/1991 HEPATITIS B VACCINES (1 of 3 - 19+ 3-dose series) 07/25 HPV/Cotest (21-29) 1993 CERVICAL CANCER SCREENING 2002 HPV/Cotest (30-65) 2002 PAP SMEAR 2002 BREAST CANCER SCREENING 2012 COLORECTAL SCREENING 2017 Colorectal Cancer Screening 2017 FIT-DNA Q 3 years 2017 FIT/FOBT Q 1 year 2017 Flex Sig/CT Colonography Q 5 years 2017 ZOSTER VACCINE (1 of 2) 2022 INFLUENZA VACCINE (#1) 2024
--- OUTSIDE RECORDS SUMMARY | 2025-02-15 10:21 | XMS_ITS | Encounter Summary ---
Author Organization [facility] Address [address] [place] [address] Care Team Providers Care Manager Pacu Name Role Phone Unavailable Primary Care Provider Unavailabl e Encounter Details Date Type Department Care Team (Late st Contact Info) Description 01/28/2002 Outpatient Historical [facility] CITY ASSESSOR - [address] [place] [address] Christiano Martin MD [address] [place] [address] [place] [address] Social History Tobacco Use Types Packs/Day Years Used Date Smoking Tobacco: Never Assessed Comments Unknown Sex and Gender Information Value Date Recorded Sex Assigned at Not on file Legal Sex Female 4:17 AM SNOWBOARDER Gender Identity Not on file Sexual Orientation Not on file documented as of this encounter Plan of Treatment Not on file documented as of this encounter Visit Diagnoses Not on filedocumented in this encounter
--- OUTSIDE RECORDS SUMMARY | 2025-02-15 10:21 | XMS_ITS | Encounter Summary ---
Author Organization [facility] Address [address] [place] [address] Care Team Providers Care Greeter Name Role Phone Unavailable Primary Care Provider Unavailabl e Encounter Details Date Type Department Care Team (Late st Contact Info) Description 07/10/2000 Outpatient Historical [facility] MOTORBOAT MECHANIC - Medical [facility] [address] [facility] [address] [address] Van Mooney MD [address] [place], [place] [id number] Social History Tobacco Use Types Packs/Day Years Used Date Smoking Tobacco: Never Assessed Comments Unknown Sex and Gender Information Value Date Recorded Sex Assigned at Not on file Legal Sex Female 4:17 AM PARACHUTE FOLDER Gender Identity Not on file Sexual Orientation Not on file documented as of this encounter Plan of Treatment Not on file documented as of this encounter Visit Diagnoses Not on filedocumented in this encounter
--- OUTSIDE RECORDS SUMMARY | 2025-02-15 10:21 | XMS_ITS | Encounter Summary ---
Author Organization [facility] Address [address] [place] [address] Care Team Providers Care Wrapper Counter Name Role Phone Unavailable Primary Care Provider Unavailabl e Encounter Details Date Type Department Care Team (Late st Contact Info) Description 10/25/1999 Outpatient Historical [facility] SAP TECHNICAL DEVELOPER - Medical [facility] [address] [facility] [address] [address] Van Mooney MD [address] [place], [place] [id number] Social History Tobacco Use Types Packs/Day Years Used Date Smoking Tobacco: Never Assessed Comments Unknown Sex and Gender Information Value Date Recorded Sex Assigned at Not on file Legal Sex Female 4:17 AM RODEO PERFORMER Gender Identity Not on file Sexual Orientation Not on file documented as of this encounter Plan of Treatment Not on file documented as of this encounter Visit Diagnoses Not on filedocumented in this encounter
--- OUTSIDE RECORDS SUMMARY | 2025-02-15 10:21 | XMS_ITS | Encounter Summary ---
Author Organization [facility] Address [address] [place] [address] Care Team Providers Care Quantometer Operator Name Role Phone Unavailable Primary Care Provider Unavailabl e Encounter Details Date Type Department Care Team (Late st Contact Info) Description 05/17/2004 Outpatient Historical [facility] WET MACHINE OPERATOR - [address] [place] [address] Christiano Martin MD [address] [place] [address] [place] [phone] Social History Tobacco Use Types Packs/Day Years Used Date Smoking Tobacco: Never Assessed Comments Unknown Sex and Gender Information Value Date Recorded Sex Assigned at Not on file Legal Sex Female 4:17 AM CLINICAL LAB SPECIALIST Gender Identity Not on file Sexual Orientation Not on file documented as of this encounter Plan of Treatment Not on file documented as of this encounter Visit Diagnoses Not on filedocumented in this encounter
--- OUTSIDE RECORDS SUMMARY | 2025-02-15 10:21 | XMS_ITS | Clinical Summary ---
Author Organization [facility] Address [address] [place] [address] Phone Care Team Providers Care Crossing Flagman Name Role Phone Jim Villanueva Primary Care Provider [phone] Allergies No known active allergies Medications traZODone [...] on file Legal Sex Female 2:37 PM BOARDING MACHINE OPERATOR Gender Identity Not on file Sexual Orientation [...] 1:01 PM CDT Height 167.6 cm (5' 6) 10/26/2020 1:01 PM CDT Body Mass Index 38.88 10/26/2020 1:01 PM CDT Plan of Treatment Health Maintenance Due Date Last Done Comments Hepatitis C Virus (HCV) Screening 1972 TdaP Immunization 1972 Hepatitis B Immunization (1 of 3 - 19+ 3-dose series) 08/09/1991 Pap Smear 1993 Cervical Cancer Screening (CCS) 2002 HPV/Cotest 2002 Cologuard 2017 Colonoscopy 2017 Colorectal Cancer Screening 2017 Immunochemical Fecal Occult Blood 2017 Pneumococcal Immunization (5 0+ years) (1 of 1 - PCV) 2022 Zoster Immunization (1 of 2) 2022 Influenza Immunization (#1) 2024 SARS-COV-2 Immunization ( - 2024- season) 2024 Respiratory Syncytial Virus (RSV) Immunization (Adult) (1 - 1-dose 75+ series) 08/09/2047 Human Papillomavirus (HPV) Immunization (No Doses Required) Completed Meningococcal Immunization (ACWY) Aged Out No longer eligible based on patient's age to complete this topic Rotavirus Immunization Aged Out No lo nger eligible based on patient's age to complete this topic Insurance [facility] Care Teams Crossing Flagman Relationship Specialty Start Date End Date Jim Villanueva [address] [place] [address] PCP - General Family Medicine 03/24/20
--- OUTSIDE RECORDS SUMMARY | 2025-02-15 10:21 | XMS_ITS | Encounter Summary ---
Author Organization [facility] Address [address] [place] [address] Care Team Providers Care Client Advocate Name Role Phone Unavailable Primary Care Provider Unavailabl e Encounter Details Date Type Department Care Team (Late st Contact Info) Description 12/06/1999 Outpatient Historical [facility] SIGNAL TOWER DIRECTOR - Medical [facility] [address] [facility] [address] [address] Van Mooney MD [address] [place], [place] [phone] Social History Tobacco Use Types Packs/Day Years Used Date Smoking Tobacco: Never Assessed Comments Unknown Sex and Gender Information Value Date Recorded Sex Assigned at Not on file Legal Sex Female 4:17 AM DEVELOPMENTAL WRITING INSTRUCTOR Gender Identity Not on file Sexual Orientation Not on file documented as of this encounter Plan of Treatment Not on file documented as of this encounter Visit Diagnoses Not on filedocumented in this encounter
--- OUTSIDE RECORDS SUMMARY | 2025-02-15 10:21 | XMS_ITS | Encounter Summary ---
Author Organization [facility] Address [address] [place] [address] Care Team Providers Care Resume Specialist Name Role Phone Unavailable Primary Care Provider Unavailabl e Encounter Details Date Type Department Care Team (Late st Contact Info) Description 06/18/2001 Outpatient Historical [facility] WIND FARM SUPPORT SPECIALIST - Medical [facility] [address] [facility] [address] [address] Van Mooney MD [address] [place], [place] [phone] Social History Tobacco Use Types Packs/Day Years Used Date Smoking Tobacco: Never Assessed Comments Unknown Sex and Gender Information Value Date Recorded Sex Assigned at Not on file Legal Sex Female 4:17 AM COMPUTING SYSTEMS MECHANIC Gender Identity Not on file Sexual Orientation Not on file documented as of this encounter Plan of Treatment Not on file documented as of this encounter Visit Diagnoses Not on filedocumented in this encounter
--- OUTSIDE RECORDS SUMMARY | 2025-02-15 10:21 | XMS_ITS | Encounter Summary ---
Author Organization [facility] Address [address] [place] [address] Phone Care Team Providers Care Lacing Cutter Name Role Phone Jim Villanueva Primary Care Provider [phone] Encounter Details Date Type Department Care Team (Late st Contact Info) Description 11/13/2020 Telephone [facility] [address] [place] [address] Mikhail Salazar MD [address] [place], [place] [id number] Social History Tobacco Use Types Packs/Day Years Used Date Smoking Tobacco: Never Smokeless Tobacco: Never Alcohol Use Standard Drinks/Week Comments No 0 (1 standard drink = 0.6 oz pur e alcohol) PHQ-2 Answer Date Recorded Total Score - Questions 1-9 0 03/2020 Comments Unknown Sex and Gender Information Value Date Recorded Sex Assigned at Not on file Legal Sex Female 2:37 PM ELECTRONIC WARFARE TECHNICAL Gender Identity Not on file Sexual Orientation [...] AM CDT REFERRAL AND RECORDS FAXED TO [facility] AND THEY WILL GET THE PATIENT SCHEDULED. * Telephone Encounter - Mikhail Salazar MD - 11/13/2020 10:34 AM CDT Send to [facility] * Telephone Encounter - Coleen Freedman - 11/13/2020 10:29 AM CDT WE HAVE BEEN TRYING TO GET THIS PT SET UP WITH [facility]. PT HAS NOT RETURNED THEIR CALLS. I [...] documented as of this encounter Care Teams Lacing Cutter Relationship Specialty Start Date End Date Jim Villanueva [address] [place] [address] PCP - General Family Medicine 03/24/20 documented as of this encounter
--- OUTSIDE RECORDS SUMMARY | 2025-02-15 10:21 | XMS_ITS | Encounter Summary ---
Author Organization [facility] Address [address] [place] [address] Care Team Providers Care Per Diem Registered Nurse Name Role Phone Unavailable Primary Care Provider Unavailabl e Encounter Details Date Type Department Care Team (Late st Contact Info) Description 08/14/2000 Outpatient Historical [facility] UNIONMELT OPERATOR - Medical [facility] [address] [facility] [address] [address] Van Mooney MD [address] [place], [place] [phone] Social History Tobacco Use Types Packs/Day Years Used Date Smoking Tobacco: Never Assessed Comments Unknown Sex and Gender Information Value Date Recorded Sex Assigned at Not on file Legal Sex Female 4:17 AM VARNISH FINISHER Gender Identity Not on file Sexual Orientation Not on file documented as of this encounter Plan of Treatment Not on file documented as of this encounter Visit Diagnoses Not on filedocumented in this encounter
--- OUTSIDE RECORDS SUMMARY | 2025-02-15 10:21 | XMS_ITS | Clinical Summary ---
Author Organization [facility] Address [facility] [place] [address] Care Team Providers Care Die Tester Name Role Phone Jim Villanueva MD Primary Care Provider [phone] Allergies No known active allergies Medications DULoxetine [...] 10:22 AM CDT Height 167.6 cm (5' 6) 06/20/2021 10:22 AM CDT Body Mass Index 41.8 06/20/2021 10:22 AM CDT Plan of Treatment Health Maintenance Due Date Last Done Comments Cervical Cancer Screening Pa p Smear (Age 30 to 64) Every 3 Years 1972 Colorectal Cancer Screening Colonoscopy (10 Years) 1972 Annual Physical 08/09/1975 Hepatitis C 1990 DTaP, Tdap and Td Vaccines ( 1 - Tdap) 08/09/1991 Hepatitis B Vaccines (1 of 3 - 19+ 3-dose series) 08/09/1991 Cervical Cancer Screening Pa p with HPV Testing (Age 30 to 64) Every 5 Years 2002 Cervical Cancer Screening with HPV 2002 Mammogram Screening 2012 Pneumococcal Vaccine: 50+ Ye ars (1 of 1 - PCV) 2022 Zoster Vaccines (1 of 2) 2022 PHQ-2 (Physician [place]) 02/25/2024 COVID-19 Vaccine (1 - 2024-2 6 season) 2024 Influenza Adult (#1) 2024 Hepatitis A Vaccines Aged Out No long er eligible based on patient's age to complete this topic Meningococcal B Vaccine Aged Out No l onger eligible based on patient's age to complete this topic Meningococcal Vaccine Aged Out No dania angelo eligible based on patient's age to complete this topic RSV Immunizations Under 20 Months Aged Out No longer eligible based on patient's age to complete this topic Insurance [facility] Care Teams Die Tester Relationship Specialty Start Date End Date Jim Villanueva MD PCP - General FAMILY PRACTICE 07/12/20
--- OUTSIDE RECORDS SUMMARY | 2025-02-15 10:21 | XMS_ITS | Encounter Summary ---
Author Organization [facility] Address [address] [place] [address] Care Team Providers Care Artificial Flowers Supervisor Name Role Phone Unavailable Primary Care Provider Unavailabl e Encounter Details Date Type Department Care Team (Late st Contact Info) Description 03/05/2006 Outpatient Historical [facility] SALES SUPPORT CONSULTANT - [address] [place] [address] Hadley Mcleod MD [address] [place] [address] [place] [address] Social History Tobacco Use Types Packs/Day Years Used Date Smoking Tobacco: Never Assessed Comments Unknown Sex and Gender Information Value Date Recorded Sex Assigned at Not on file Legal Sex Female 4:17 AM ADMINISTRATIVE DIRECTOR Gender Identity Not on file Sexual Orientation Not on file documented as of this encounter Plan of Treatment Not on file documented as of this encounter Visit Diagnoses Not on filedocumented in this encounter
--- OUTSIDE RECORDS SUMMARY | 2025-02-15 10:21 | XMS_ITS | Clinical Summary ---
Author Organization [facility] [address] Address [address] [place] [address] Care Team Providers Care Jewel Flat Surfacer Name Role Phone Jim Villanueva MD Primary Care Provider Allergies No known active allergies Medications Cymbalta 30 mg capsule 09/24/2018 Active traZODone (DESYREL) 100 mg tablet Take 1 tablet (100 mg total) by mouth 09/24/2013 Active irbesartan-hydro chlorothiazide (AVALIDE) 150-12.5 mg per tablet Take 1 tablet by mouth daily Active dextroamphetamin e-amphetamine XR (ADDERALL XR) 30 mg 24 hr capsule Take 1 tablet by mouth daily 09/08/2020 Active Active Problems Problem Noted Date Diagnosed Date Primary osteoarthritis of left knee 12/08/2024 GERD (gastroesophageal reflux disease) Hypertension 09/24/2022 Palpitations 09/24/2022 Tachycardia 09/24/2022 Iron deficiency anemia refractory to iron therap y 04/29/2019 Chronic tonsillitis 06/05/2017 Laryngopharyngeal reflux 06/05/2017 Tinnitus, bilateral 06/05/2017 Tonsil stone 06/05/2017 Lymphadenopathy, cervical 06/05/2017 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 Encounters Date Type Department Care Team Description 12/08/2024 2:30 PM CDT Ancillary Procedure [facility] Imaging at [address] [address] 12/08/2024 2:30 PM CDT Office Visit [facility] Orthopedic and Sports Medicine [address] [place] [phone] Mau Nichols MD Primary osteoarthritis of left knee (Primary Dx); Left knee pain, unspecified chronicity 12/08/2024 Orders Only [facility] Orthopedic [facility] Sports Medicine [address] [place] [address] Mau Nichols MD Pre-op testing (Primary Dx); Primary osteoarthritis of left knee 12/08/2024 Telephone [facility] Medicine [address] [place] [phone] Mau Nichols MD surgery clearance- Left knee from Last 3 Months Surgical History Surgery Date Site/Laterality Comments EYE SURGERY KNEE SURGERY Right Social History Tobacco Use Types Packs/Day Years Used Date Smoking Tobacco: Never Smokeless Tobacco: Never Tobacco Cessation:Counseling Given: Not Answered Comments Unknown Sex and Gender Information Value Date Recorded Sex Assigned at Not on file Legal Sex Female 6:27 PM BOX TOE BUFFER Gender Identity Female 09/22/2022 5:55 PM CDT Sexual Orientation Not on file Last Filed Vital Signs Vital Sign Reading Time Taken Comments Blood Pressure 130/80 12/08/2024 2:39 PM CDT Pulse 81 11/13/2022 1:08 PM CDT Temperature - - Respiratory Rate - - Oxygen Saturation - - Inhaled Oxygen Concentration - - Weight 98.9 kg (218 lb) 12/08/2024 2:39 PM CDT Height 167.6 cm (5' 6) 12/08/2024 2:39 PM CDT Body Mass Index 35.19 12/08/2024 2:39 PM CDT Plan of Treatment Health Maintenance Due Date Last Done Comments Breast Cancer Screening-Mammogram 1972 Cervical Cancer Screening 1972 Colon Cancer Screening-Colonoscopy 1972 Depression Screening 1972 Hepatitis C Screening 1972 DTaP/Tdap/Td Vaccine (1 - Tdap) 08/09/1983 Hepatitis B Screening 1990 Regular Well Visit/Exam 18-64 1990 Zoster Vaccine (1 of 2) 2022 Influenza Vaccine (#1) 2024 Pneumococcal vaccine <65 Aged Out No longer eligible based on patient's age to complete this topic Procedures Procedure Name Priority Date/Time Associated Diagnosis Comments XR KNEE LEFT 4 OR MORE VIEWS Schedule Routine, Read Routine (OP Routine) 12/08/2024 2:34 PM CDT Left knee pain, unspecified chronicity from Last 3 Months Results * XR Knee Left 4 or More Views (12/08/2024 2:34 PM CDT) Anatomical Region Laterality Modality Lower Extremities, Knee Left Digital Radiography Narrative 12/08/2024 2:53 PM CDT Four views left knee shows kl grade 2/3 osteoarthrosis [id number] changes medial compartment subchondral sclerosis medial osteophytes significant joint space loss from previous radiographs us Mau Nichols MD IMG XR PROCEDURES Final Resu lt from Last 3 Months Insurance [employer] ACCESS CHOICE [employer] ACCESS CHOICE Care Teams Jewel Flat Surfacer Relationship Specialty Start Date End Date Jim Villanueva MD PCP - General Family Medicine 07/11/20
--- OUTSIDE RECORDS SUMMARY | 2025-02-15 10:21 | XMS_ITS | Encounter Summary ---
Author Organization [facility] Address [address] [place] [address] Care Team Providers Care Assistant Track Coach Name Role Phone Unavailable Primary Care Provider Unavailabl e Encounter Details Date Type Department Care Team (Late st Contact Info) Description 08/19/2002 Outpatient Historical [facility] CORONER'S JUROR - [address] [place] [address] Christiano Martin MD [address] [place] [address] [place] [phone] Social History Tobacco Use Types Packs/Day Years Used Date Smoking Tobacco: Never Assessed Comments Unknown Sex and Gender Information Value Date Recorded Sex Assigned at Not on file Legal Sex Female 4:17 AM RADIATION PROTECTION ENGINEER Gender Identity Not on file Sexual Orientation Not on file documented as of this encounter Plan of Treatment Not on file documented as of this encounter Visit Diagnoses Not on filedocumented in this encounter
--- OUTSIDE RECORDS SUMMARY | 2025-02-15 10:21 | XMS_ITS | Encounter Summary ---
Author Organization [facility] Address [address] [place] [address] Care Team Providers Care Tool Adjuster Name Role Phone Unavailable Primary Care Provider Unavailabl e Encounter Details Date Type Department Care Team (Late st Contact Info) Description 04/28/2003 Outpatient Historical [facility] SLITTING MACHINE OPERATOR HELPER - [address] [place] [address] Christiano Martin MD [address] [place] [address] [place] [phone] Social History Tobacco Use Types Packs/Day Years Used Date Smoking Tobacco: Never Assessed Comments Unknown Sex and Gender Information Value Date Recorded Sex Assigned at Not on file Legal Sex Female 4:17 AM COLLEGE PRESIDENT Gender Identity Not on file Sexual Orientation Not on file documented as of this encounter Plan of Treatment Not on file documented as of this encounter Visit Diagnoses Not on filedocumented in this encounter
[2025-02-15 10:35] LABS: Iron 126 ug/dL (37-170)
[2025-02-15 10:36] LABS: Alanine Aminotransferase 18 U/L (6-35); Albumin Level 4.4 g/dL (3.5-5.1); Alkaline Phosphatase 126 U/L (38-126); Anion Gap 9 mmol/L (4-12); Aspartate Amino Transferase 25 U/L (14-36); Bilirubin,Total 0.4 mg/dL (0.2-1.3); Blood Urea Nitrogen 12 mg/dL (7-17); Calcium 9.6 mg/dL (8.4-10.2); Carbon Dioxide 27 mmol/L (22-30); Chloride 104 mmol/L (98-107); Cholesterol 176 mg/dL (0-200); Estimated Glomerular Filt Rate > 60; Glucose 95 mg/dL (65-110); HDL Direct 67 mg/dL; Osmolality Calculated 289 mOsm/kg (285-295); Potassium 4.2 mmol/L (3.4-5.0); Sodium 140 mmol/L (137-145); Total Protein 7.3 g/dL (6.3-8.2); Triglycerides 114 mg/dL (<150)
[2025-02-15 10:45] LABS: Percent Iron Saturation 38 % (20-50)
[2025-02-15 11:06] LABS: Thyroid Stimulating Hormone Reflex 0.511 uIU/mL (0.465-4.68)
[2025-02-15 11:11] LABS: Ferritin 10.90 ng/mL (11.1-264)
[2025-02-15 11:42] LABS: Vitamin B12 > 1000.0 pg/mL (239-931)
== END 2025-02-15 09:54 | disposition home or self-care (01) ==
LOC: CHSLAB 09:56
PROVIDERS: PCP Emergency Medicine; Visit Provider Emergency Medicine
DX: E03.9 Hypothyroidism, unspecified (principal); E78.2 Mixed hyperlipidemia; I10 Essential (primary) hypertension; L65.9 Nonscarring hair loss, unspecified; M25.562 Pain in left knee; R63.4 Abnormal weight loss; Z00.01 Encounter for general adult medical examination with abnormal findings; Z01.818 Encounter for other preprocedural examination
CPT/HCPCS: 36415; 80061; 80069; 80076; 81003; 82306; 82607; 82728; 82746; 83540; 83550; 84443; 85025